=== PATIENT | male | born 1945 | race Caucasian/White ===

== ENCOUNTER 2022-10-08 07:45 | Outpatient (CLI) | payer MEDICARE, OTHER, SELFPAY ==
--- NOTE | 2022-10-08 07:59 | CT_ITS ---
WS: [id number] CT NECK TECHNIQUE: Contrast-enhanced CT of the neck with coronal and sagittal reformatted images. CLINICAL INFORMATION: LOCALIZED SWELLING, MASS, LUMP, NECK COMPARISON: CT October 14, 2018 DLP: 276.[address] scans at [facility] use at least one of these dose optimization techniques: automated e xposure control; mA and/or kV adjustment per patient size (includes targeted exams where dose is matc hed to clinical indication); or iterative reconstruction. FINDINGS: Palpable marker overlying the RIGHT parotid gland. No focal underlying cystic or solid lesion. Normal underlying parotid gland. Normal submandibular glands. Normal posterior nasopharynx. Normal palatine tonsils. RIGHT tonsillar calcifications. Normal parapharyngeal fat. No evidence of supraglottic or g lottic mass. Normal subglottic airway. Thyroid gland is normal. Lung apices are well aerated. Visualized paranasal sinuses are well aerated. Normal mastoid air cells. Slightly prominent RIGHT submandibular lymph node measuring 10 mm. This ap pears unchanged since 2019. No cervical lymphadenopathy. CT/CT neck w con* [id number] IMPRESSION: 1. Palpable marker overlying the RIGHT parotid gland. No underlying mass or le roman. Normal parotid glands. 2. Submandibular glands are normal. 3. Slightly prominent RIGHT submandibular lymph node appears similar to 2019. No cervical lymphadenopathy. 4. No evidence of supraglottic or glottic mass. 5. Visualized paranasal sinuses and mastoid air cells well aerated.
[2022-10-08 08:39] LABS: Blood Urea Nitrogen 19 mg/dL (8-23)
[2022-10-08] MEDS: iohexol 350 mg/mL 500 mL Btl (per mL) IV (08:50)
== END 2022-10-08 07:46 | disposition home or self-care (01) ==
LOC: RAD 07:49
PROVIDERS: PCP Nurse Practitioner; Visit Provider Specialist
DX: R22.1 Localized swelling, mass and lump, neck (principal)
CPT/HCPCS: 70491; 82565; 84520; Q9967

== ENCOUNTER 2023-01-28 16:12 | Inpatient (IN) | payer OTHER, SELFPAY ==
[2023-01-28] VITALS (62 sets, daily range): BP systolic 109–181; BP diastolic 65–88; PULSE 58–208; RESP 9–34; TEMP 36.9; O2SAT 91–100
--- NOTE | 2023-01-28 16:17 | CTR_ITS ---
PROCEDURE INFORMATION: Exam: CT Head Without Contrast Exam date and time: 01/28/2023 4:11 PM Age: 77 years old Clinical indication: Stroke-like symptoms; Altered mental status/memory loss; Additional info: Symptoms of acute stroke TECHNIQUE: Imaging protocol: Computed tomography of the head without contrast. Radiation optimization: All CT scans at this facility use at least one of these dose optimization techniques: automated exposure control; mA and/or kV adjustment per patient size (includes targeted exams where dose is matched to clinical indication); or iterative reconstruction. Other technique: STROKE PROTOCOL was implemented. REPORTING DATA: Count of CT and Cardiac NM exams in prior 12 months: This patient has received [address] and 0 known cardiac nuclear medicine studies in the 12 months prior to the current study. COMPARISON: CT neck w con* [id number] 10/08/2022 8:42 AM RADIATION DOSE METRICS: Total DLP (mGy-cm): 1154.57 FINDINGS: Brain: There are areas of edema in the left temporal lobe, parietal lobe and occipital lobe, as well as left ganglial capsular region, consistent with acute MCA territory ischemia. Follow-up MRI would be the most helpful examination to fully assess the ischemic regions. No acute intracranial hemorrhage is seen. No midline shift. Cerebral ventricles: There is mass effect upon the temporal horn of the left lateral ventricle. Paranasal sinuses: The visualized sinuses are unremarkable. Mastoid air cells: There is no mastoid effusion detected. Bones/joints: Unremarkable. No acute fracture. Soft tissues: Unremarkable. CT/CT head thrombolytic [id number] IMPRESSION: 1. Acute ischemia in left MCA territory, as above. 2. Edema is causing mass effect on the temporal horn of the left lateral ventricle. 3. No intracranial hemorrhage or midline shift. ASSESSMENT: ASPECTS ([place] Stroke Program Early CT Score) is 4.
--- NOTE | 2023-01-28 16:20 | ECG_ITS ---
[facility] Test Date: 2023-01-28 Pat Name: Mani Manning Department: Room: Gender: Male Senior Occupational Therapist: : [id number] Requested By: Kike Candelaria Order Number: [id number] Lynnette MD: Matt Malik M.D. Measurements Intervals [place] Rate: 66 P: 69 AR: 180 QRS: 8 QRSD: 103 T: 30 QT: 403 QTc: 424 Interpretive Statements SINUS RHYTHM Compared to ECG 02/23/2019 10:11:52 Sinus bradycardia no longer present Electronically Signed On 01-28-2023 17:23:26 CDT by Matt Malik M.D. [id number]
--- NOTE | 2023-01-28 16:24 | ED_ITS ---
HPI - Neuro Symptoms/Deficit General: Chief Complaint: Neuro Symptoms/Deficit Stated Complaint: stroke Time Seen by Provider: 01/28/23 16:13 Source: family and EMS Mode of arrival: EMS History of Present Illness: 77-year-old male arrives via EMS with sudden onset of the symptoms that 2 PM this afternoon he was unable to follow commands unable to answer questions. EMS was called they had a blood sugar of 82 in the field on arrival here he is moving all 4 limbs but not following commands and has word salad. Has a receptive aphasia Time: 16:17 Last Observed Normal: 14:00 Timing confirmed by: family member and other (EMS) Location: speech, dysarthria and altered History of same: No Severity: moderate Relieving factors: none Exacerbating factors: none Context: sudden onset Review of Systems General: Reports: ROS unobtainable due to mental status PFSH ED PFSH: Medical History Atypical chest pain EKG done on 08/31/2019 in the office revealed sinus bradycardia with a rate of [address]-T changes. Diverticulosis Dyspnea on exertion Essential hypertension Hearing loss Obesity Obesity (BMI 30-39.9) Umbilical hernia Umbilical done in January of 2019. Family History Mother , of [place] at the age of 84 CAD (coronary artery disease) NIH stroke score NIHSS: Level Of Consciousness - 1a: 3 Level Of Consciousness Questions - 1b: Neither Correct Level Of Consciousness Commands - 1c: One Correct Best Gaze - 2: Normal Visual [place] - 3: No Visual Loss Facial Palsy - 4: Normal Motor Arm Right - 5: No Drift Motor Arm Left - 5: No Drift Motor Leg Right - 6: No Drift Motor Leg Left - 6: No Drift Limb Ataxia - 7: Absent Sensory - 8: Normal Best Language - 9: Mild/Moderate Aphasia Dysarthia - 10: Mild/Moderate Dysarthia Extinction And Inattention - 11: 2 Score: Total Score: 10 Physical Exam HENMT: COMMON NORMALS: normocephalic, atraumatic and hearing grossly normal bi laterally HEAD & SCALP: normocephalic and atraumatic Resp: COMMON NORMALS: normal respiratory effort, No retractions, No use of accessory muscles and clear to auscultation bilaterally AUSCULTATION: clear to auscultation bilaterally Cardio: COMMON NORMALS: regular rate, regular rhythm and No murmurs present (Cardio) RATE: regular rate RHYTHM: regular rhythm GI: COMMON NORMALS: Soft to palpation and No hepatosplenomegaly present AUSCULTATION: Yes normoactive bowel sounds PALPATION: Yes Soft to palpation, No Tenderness to palpation present (GI), No Guarding due to palpation present (GI) and Yes No hepatosplenomegaly present Extremity: COMMON NORMALS: normal to inspection, capillary refill normal, no clubbing, cyanosis or edema, no calf tenderness and no pedal edema Skin: COMMON NORMALS: no rashes or lesions noted GENERAL SKIN EXAM: no rashes or lesions noted Course Vital Signs: Vital signs: Vital Signs Temperature 98.5 F 01/29/23 00:00 Pulse Rate 58 L 01/29/23 06:00 Respiratory Rate 16 01/29/23 02:56 Blood Pressure 159/77 01/29/23 02:56 Pulse Oximetry 98 01/29/23 00:15 Oxygen Delivery Me thod Nasal Cannula 01/29/23 00:00 Oxygen Flow Rate 2 01/29/23 00:00 MDM - Neuro Symptoms/Deficit Medical Decision Making Discussed with family. Reviewed findings. Initially there was no available family. He is within the timeframe and has an adequate NIH for administration of tPA. Discussed Dr. Oliver tPA administered. CT read by radiology as having signs of ischemia but no acute bleed. CTA done is negative for embolectomy. Repeat exam patient continues to have receptive aphasia. Blood pressure has improved significantly since arrival. We will admit and initiate usual stroke work-up and treatments. Discussed with hospitalist orders written admit to ICU. Medical Records I reviewed the patient's medical records. Lab Data I reviewed the patient's lab results. 01/29/23 02:13 01/29/23 02:[address] 01/28/23 16:17 IMPRESSION: 1. Acute ischemia in left MCA territory, as above. 2. Edema is causing mass effect on the temporal horn of the left lateral ventricle. 3. No intracranial hemorrhage or midline shift. ASSESSMENT: ASPECTS ([place] Stroke Program Early CT Score) is 4. ADDENDUM: 01/28/23 0291 The ordering physician KIKE Alston was contacted by phone at 4:33 PM CDT, 01/28/2023 with these results. Head/Neck CTA 01/28/23 16:35 IMPRESSION: No significant abnormality involving the major intracranial arteries. IMPRESSION: No acute arterial abnormality identified in the neck. REFERENCES: NASCET CRITERIA. The degree of stenosis in the cervical segment of the internal carotid artery is based on NASCET criteria. Normal is no stenosis. Mild is less than 50% stenosis. Moderate is 50-69% stenosis. Severe is 70% to 99% stenosis. Total occlusion is no detectable patent lumen. Laboratory Results WBC 8.3 10^3/uL (4.0-10.0) 01/28/23 16:25 RBC 4.69 10^6/uL (4.1-5.3) 01/28/23 16:25 Hgb 14.4 g/dL (11.7-16.6) 01/28/23 16:25 Hct 44.8 % (42.0-52.0) 01/28/23 16:25 MCV 95.5 fl (80-94) H 01/28/23 16:25 MCH 30.7 pg (28.0-34.0) 01/28/23 16:25 MCHC 32.1 g/dL (30.0-36.0) 01/28/23 16:25 RDW 12.9 % (12.1-15.1) 01/28/23 16:25 Plt Count 174 10^3/cmm (130-400) 01/28/23 16:25 MPV 9.1 fL (7.4-10.4) 01/28/23 16:25 Neut % (Auto) 58.6 % 01/28/23 16:25 Lymph % (Auto) 30.0 % 01/28/23 16:25 [place] % (Auto) 5.8 % 01/28/23 16:25 Eos % (Auto) 4.3 % 01/28/23 16:25 Baso % (Auto) 1.1 % 01/28/23 16:25 Neut # (Auto) 4.88 10^3/uL (1.8-7.7) 01/28/23 16:25 Lymph # (Auto) 2.5 10^3/uL (0.8-4.8) 01/28/23 16:25 [place] # (Auto) 0.5 10^3/uL (0.2-0.9) 01/28/23 16:25 Eos # (Auto) 0.4 10^3/uL (0.0-0.8) 01/28/23 16:25 Baso # (Auto) 0.1 10^3/uL (0.0-0.1) 01/28/23 16:25 Nucleated RBC % (auto) 0 % 01/28/23 16:25 Nucleated RBCs # 0.0 /100WBC 01/28/23 16:25 PT 13.80 SECONDS (12.1-14.9) 01/28/23 16:25 INR 1.02 (0.8-1.2) 01/28/23 16:25 APTT 28.6 SECONDS (23.9-36.7) 01/28/23 16:25 Sodium 140 mmol/L (136-145) 01/28/23 16:25 Potassium 4.3 mmol/L (3.5-5.1) 01/28/23 16:25 Chloride 106 mmol/L (98-107) 01/28/23 16:25 Carbon Dioxide 25 mmol/L (22-29) 01/28/23 16:25 Anion Gap 13.3 (5-19) 01/28/23 16:25 BUN 18 mg/dL (8-23) 01/28/23 16:25 Creatinine 1.3 mg/dL (0.7-1.2) H 01/28/23 16:25 GFR Calculation Not Reportable 01/28/23 16:25 Glucose 88 mg/dL (65-115) 01/28/23 16:25 Calculated Osmolality 291 mOsm/kg (285-295) 01/28/23 16:25 Calcium 8.4 mg/dL (8.5-10.5) L 01/28/23 16:25 Total Bilirubin 0.3 mg/dL (0.15-1.2) 01/28/23 16:25 AST 17 U/L (0-40) 01/28/23 16:25 ALT 18 U/L (0-41) 01/28/23 16:25 Alkaline Phosphatase 63 U/L (40-130) 01/28/23 16:25 Total Protein 7.0 g/dL (6.6-8.7) 01/28/23 16:25 Albumin 4.1 g/dL (3.5-5.2) 01/28/23 16:25 Globulin 2.9 g/dL (1.3-4.6) 01/28/23 16:25 Discharge Plan Discharge Patient Disposition: Admitted As Inpatient Admit Provider: Crescencio Fonseca Clinical Impression: CVA (cerebral vascular accident), Essential hypertension Condition: Stable Coding Level of Care Code ED Septic Cleaner for Mandy Murray
--- NOTE | 2023-01-28 16:35 | CTR_ITS ---
PROCEDURE INFORMATION: Exam: CTA Head Without And With Contrast, Arteriography Exam date and time: 01/28/2023 4:42 PM Age: 77 years old Clinical indication: Speech disturbance; Additional info: Acute CVA TECHNIQUE: Imaging protocol: Computed tomographic angiography of the head without and with contrast. Exam focused on the arteries. 3D rendering (Not supervised by radiologist): MIP and/or 3D reconstructed images were created by the technologist. Radiation optimization: All CT scans at this facility use at least one of these dose optimization techniques: automated exposure control; mA and/or kV adjustment per patient size (includes targeted exams where dose is matched to clinical indication); or iterative reconstruction. Contrast material: OMNI 350; Contrast volume: 100 ml; Contrast route: INTRAVENOUS (IV); REPORTING DATA: Count of CT and Cardiac NM exams in prior 12 months: This patient has received [address] and 0 known cardiac nuclear medicine studies in the 12 months prior to the current study. COMPARISON: CT head thrombolytic [id number] 01/28/2023 4:11 PM RADIATION DOSE METRICS: Total DLP (mGy-cm): 1236.58 FINDINGS: ANTERIOR CIRCULATION: Right internal carotid artery: Intracranial segment is patent with no significant stenosis or occlusion. No aneurysm. Right middle cerebral artery: No occlusion or significant stenosis. No aneurysm. Right anterior cerebral artery: No occlusion or significant stenosis. No aneurysm. Left internal carotid artery: Intracranial segment is patent with no significant stenosis. No aneurysm. Left middle cerebral artery: No occlusion or significant stenosis. No aneurysm. Left anterior cerebral artery: No occlusion or significant stenosis. No aneurysm. POSTERIOR CIRCULATION: Right vertebral artery: No occlusion or significant stenosis. No aneurysm. Left vertebral artery: No occlusion or significant stenosis. No aneurysm. Basilar artery: No occlusion or significant stenosis. No aneurysm. Right posterior cerebral artery: No occlusion or significant stenosis. No aneurysm. Left posterior cerebral artery: No occlusion or significant stenosis. No aneurysm. HEAD: Brain: See separate report. Cerebral ventricles: Effacement of the left temporal horn. No ventriculomegaly. Bones/joints: Unremarkable. No acute fracture. Paranasal sinuses: Visualized sinuses are normal. No fluid levels. Mastoid air cells: Visualized mastoids are normal. No mastoid effusion. Soft tissues: Unremarkable. PROCEDURE INFORMATION: Exam: CTA Neck Without And With Contrast Exam date and time: 01/28/2023 4:42 PM Age: 77 years old Clinical indication: Speech disturbance; Additional info: Acute CVA TECHNIQUE: Imaging protocol: Computed tomographic angiography of the neck without and with contrast. 3D rendering (Not supervised by radiologist): MIP and/or 3D reconstructed images were created by the technologist. Radiation optimization: All CT scans at this facility use at least one of these dose optimization techniques: automated exposure control; mA and/or kV adjustment per patient size (includes targeted exams where dose is matched to clinical indication); or iterative reconstruction. Contrast material: OMNI 350; Contrast volume: 100 ml; Contrast route: INTRAVENOUS (IV); REPORTING DATA: Count of CT and Cardiac NM exams in prior 12 months: This patient has received [address] and 0 known cardiac nuclear medicine studies in the 12 months prior to the current study. COMPARISON: CT neck w con* [id number] 10/08/2022 8:42 AM RADIATION DOSE METRICS: Total DLP (mGy-cm): 1236.58 FINDINGS: Right common carotid artery: No stenosis. No dissection or occlusion. Right internal carotid artery: No stenosis of the extracranial segment. No dissection or occlusion. Right external carotid artery: No occlusion or stenosis of the origin. Left common carotid artery: No stenosis. No dissection or occlusion. Left internal carotid artery: No stenosis of the extracranial segment. No dissection or occlusion. Left external carotid artery: No occlusion or stenosis of the origin. Right vertebral artery: No stenosis. No dissection or occlusion. Left vertebral artery: No stenosis. No dissection or occlusion. Aorta: There is minimal calcified atherosclerotic plaque at the aortic arch. Remarkably for the patient's age, no other calcified plaque is detected on this study. Soft tissues: Normal. No significant soft tissue swelling. Bones/joints: No acute fracture. CT/CT angio headneck* [id number] IMPRESSION: No significant abnormality involving the major intracranial arteries. IMPRESSION: No acute arterial abnormality identified in the neck. REFERENCES: NASCET CRITERIA. The degree of stenosis in the cervical segment of the internal carotid artery is based on NASCET criteria. Normal is no stenosis. Mild is less than 50% stenosis. Moderate is 50-69% stenosis. Severe is 70% to 99% stenosis. Total occlusion is no detectable patent lumen.
[2023-01-28 16:36] LABS: Basophils # 0.1 10^3/uL (0.0-0.1); Basophils % 1.1 %; Eosinophils # 0.4 10^3/uL (0.0-0.8); Eosinophils % 4.3 %; Hematocrit 44.8 % (42.0-52.0); Hemoglobin 14.4 g/dL (11.7-16.6); Lymphocytes # 2.5 10^3/uL (0.8-4.8); Mean Corpuscular HGB Conc 32.1 g/dL (30.0-36.0); Mean Corpuscular Hemoglobin 30.7 pg (28.0-34.0); Mean Corpuscular Volume 95.5 fl (80-94); Mean Platelet Volume 9.1 fL (7.4-10.4); Monocytes # 0.5 10^3/uL (0.2-0.9); Monocytes % 5.8 %; Neutrophils # 4.88 10^3/uL (1.8-7.7); Neutrophils % 58.6 %; Nucleated Red Blood Cells % 0 %; Platelet Count 174 10^3/cmm (130-400); Red Blood Count 4.69 10^6/uL (4.1-5.3); Red Cell Distribution Width 12.9 % (12.1-15.1); White Blood Count 8.3 10^3/uL (4.0-10.0)
[2023-01-28] MEDS: iohexol 350 mg/mL 500 mL Btl (per mL) IV (16:51)
[2023-01-28 16:52] LABS: INR 1.02 (0.8-1.2)
[2023-01-28 16:53] LABS: Partial Thromboplastin Time 28.6 SECONDS (23.9-36.7)
[2023-01-28 17:00] LABS: Alanine Aminotransferase 18 U/L (0-41); Albumin Level 4.1 g/dL (3.5-5.2); Alkaline Phosphatase 63 U/L (40-130); Anion Gap 13.3 (5-19); Aspartate Amino Transferase 17 U/L (0-40); Blood Urea Nitrogen 18 mg/dL (8-23); Calcium 8.4 mg/dL (8.5-10.5); Carbon Dioxide 25 mmol/L (22-29); Chloride 106 mmol/L (98-107); Globulin 2.9 g/dL (1.3-4.6); Glucose 88 mg/dL (65-115); Osmolality Calculated 291 mOsm/kg (285-295); Potassium 4.3 mmol/L (3.5-5.1); Sodium 140 mmol/L (136-145); Total Bilirubin 0.3 mg/dL (0.15-1.2)
--- NOTE | 2023-01-28 17:36 | P.PNCC_ITS ---
Stroke Alert Activation ED Arrival Date: 01/28/23 ED Arrival Time: 16:53 Last Known Normal/at Baseline: 1-2 hours ago Other Last Known Well Infomation: Stroke alert was called by [facility] at 1547 reporting left-sided weakness, confusion and slurred speech. Patient was last known to be well at 2 PM. I talked with the nurse and let them know that I was on standby. The patient was still 25 minutes out having been picked up in [place]. Dr. Adan called me immediately after he evaluated the patient and found that the patient had profound neurologic abnormalities although his motor focality was not evident. We agreed that he should be treated and an IV was inserted and the patient received tPA. Stroke Alert Activated by: [facility] Stroke Alert Activation Time: 15:47 Stroke MD @ Bedside Time: 15:47 NIH stroke score NIHSS: Level Of Consciousness - 1a: 3 Level Of Consciousness Questions - 1b: Neither Correct Level Of Consciousness Commands - 1c: Neither Correct Best Gaze - 2: Normal Visual [place] - 3: No Visual Loss Facial Palsy - 4: Normal Motor Arm Right - 5: No Drift Motor Arm Left - 5: No Drift Motor Leg Right - 6: No Drift Motor Leg Left - 6: No Drift Limb Ataxia - 7: Absent Sensory - 8: Normal Best Language - 9: Severe Aphasia Dysarthia - 10: Normal Extinction And Inattention - 11: 0 Score: Total Score: 9 Stroke Alert Data/Treatment Time to CT of Head: 16:17 CT Impression: Mild sulcal effacement and loss of the rodney-white differentiation in the left inferior and posterior temporal lobe. Nonspecific white matter changes in the left hemisphere. No sulcal effacement in the sylvian fissure and I do not appreciate any asymmetry of the ventricles. CT angiogram shows no sign of occlusion in any of the extracranial or intracranial carotid or vertebral arteries. Left middle cerebral artery patent throughout. Stroke Risk Factors: hypertension (Normally he is not hypertensive and checks his blood pressure at home) and previous [place] (This pain seen by Dr. Galloway, noncardiac) tPA Started Time: tPA Started - Time: 16:27 tPA Admin Prior to Arrival: No Patient & Family Educated on: Cause of Stroke, Risk Factors, Treament Plan, Prognosis, Stroke Education Booklet and tPA Risks/Benefits Other Patient & Family Education: I have searched the chart and I am unable to locate the time of the tPA bolus. I talked with Dr. Adan and we agreed to tPA by phone after he had time to fully evaluate the patient. I completed several examinations in my office before going [id number] with the patient, performing a neurologic exam and talking with his family. I reviewed his CT of the head and talked with the family about the findings of edema with sulcal effacement which would not preclude tPA since patient had exactly known time of onset witnessed by people at the caf?. Critical Care Time Critical Care Time: less than 30 mins Additional information about critical care time: 30 A&P Assessment and plan (1) Left acute arterial ischemic stroke, MCA (middle cerebral artery): Acute posterior branch left middle cerebral artery stroke with receptive more than expressive aphasia. No motor deficit. No visual field cut. Known time of onset of weakness time of onset 2 hours prior to tPA bolus. Although CT scan of the head shows loss of rodney-white differentiation and sulcal effacement, this is not a contraindication to tPA. Plan to keep the patient's blood pressure under good control based on tPA protocol. CT of the head in the morning. Coding Level of Care Code Acute Code for g Fwd Diagnoses Left acute arterial ischemic stroke, MCA (middle cerebral artery) I63.512
--- NOTE | 2023-01-28 19:16 | PM.HP ---
Providers/Chief Complaint Admitting Physician: Crescencio Fonseca MD Primary Care Provider: ROBBY Grissom-C Chief Complaint: stroke History of Present Illness Mani Manning is a 77 year old male with past medical history of hypertension was brought in with chief complaint of acute onset of symptoms that he was not able to follow commands unable to answer questions When he arrived in the ER he was able to move all his extremities, but was having word salad, code stroke was called,NIHSS: 10 , on arrival, CT head without contrast was done: Which did not showed any acute intracranial pathology, CTA head and neck no flow-limiting stenosis, patient received tPA. His vitals and labs have been reviewed. Review of Systems General: Reports: 10 or more systems reviewed and unremarkable except in HPI and below Const: Denies: fever(s), chills, body aches, change in appetite or diaphoresis Card: Denies: palpitations, edema, swelling of feet/ankles, dyspnea on exertion, orthopnea or leg pain with exertion Resp: Denies: dyspnea, productive cough, wheezing or pain on inspiration GI: Denies: abdominal pain, nausea, vomiting, diarrhea or constipation : Denies: flank pain or difficulty urinating Musc: Denies: back pain, extremity pain or extremity swelling Neuro: Denies: headache(s), difficulty walking or confusion Medications/Allergies Home Medications Medication Instructions Recorded Confirmed Last Taken Type aspirin 81 mg tablet,delayed 81 mg PO Q6H PRN Pain 01/28/23 01/28/23 01/28/23 History release Allergies Allergy/AdvReac Type Severity Reaction Status Date / Time hydrochlorothiazide Allergy Weakness/di Verified 01/28/23 16:31 zziness Sulfa (Sulfonamide Allergy rashes Verified 01/28/23 16:31 Antibiotics) PFSH Acute PFSH: Medical History Atypical chest pain EKG done on 08/31/2019 in the office revealed sinus bradycardia with a rate of [address]-T changes. Diverticulosis Dyspnea on exertion Essential hypertension Hearing loss Obesity Obesity (BMI 30-39.9) Umbilical hernia Umbilical done in January of 2019. Family History Mother , of [place] at the age of 84 CAD (coronary artery disease) Vitals/I&O/Wt Last Vital Signs Temp 98.5 F 01/28/23 16:17 Pulse 87 01/28/23 18:48 Resp 16 01/28/23 18:48 BP 111/65 01/28/23 18:48 Pulse Ox 98 01/28/23 18:48 O2 Del Method Room Air 01/28/23 16:17 Weight last 48 hrs Weight 113.398 kg Physical Exam Const: COMMON NORMALS: patient oriented x3 HENMT: COMMON NORMALS: normocephalic and atraumatic HEAD & SCALP: normocephalic and atraumatic Resp: COMMON NORMALS: clear to auscultation bilaterally AUSCULTATION: clear to auscultation bilaterally Cardio: COMMON NORMALS: regular rate, regular rhythm, S1 normal heart sound present, S2 normal heart sound present, No gallops present (Cardio), No murmurs present (Cardio), No rub (Cardio) and Peripheral pulses 2+ throughout RATE: regular rate RHYTHM: regular rhythm HEART SOUNDS: S1 normal heart sound present and S2 normal heart sound present PERIPHERAL PULSES: Peripheral pulses 2+ throughout GI: COMMON NORMALS: Normal to inspection, nondistended, normoactive bowel sounds present, Soft to palpation, non-tender, No hepatosplenomegaly present and no masses AUSCULTATION: Yes normoactive bowel sounds PALPATION: Yes Soft to palpation and Yes No hepatosplenomegaly present RECTAL EXAM: Yes deferred Extremity: COMMON NORMALS: no clubbing, cyanosis or edema and no pedal edema Neuro: COMMON NORMALS: patient oriented x3 Data 01/29/23 02:13 01/29/23 02:13 A&P Assessment and plan (1) CVA (cerebral vascular accident): (2) Essential hypertension: Plan 77 year old male with past medical history of hypertension was brought in with chief complaint of acute onset of symptoms that he was not able to follow commands unable to answer questions When he arrived in the ER he was able to move all his extremities, but was having word salad, code stroke was called,NIHSS: 10 , on arrival, CT head without contrast was done: Which did not showed any acute intracranial pathology, CTA head and neck no flow-limiting stenosis, patient received tPA. Assessment: Acute CVA: S/p tPA: Currently patient has significant word salad, minimal right-sided weakness. CT head without contrast was done: Which did not showed any acute intracranial pathology, CTA head and neck no flow-limiting stenosis Follow repeat CT head without contrast in the morning Follow-up 2D echo with bubble study Started on aspirin and statin Monitor blood pressure for goal of less than 180/105 PT OT evaluation Speech evaluation Telemetry monitoring Event monitor on discharge CODE STATUS: Full code Attestations Medical Necessity Statement*: Patient is to in hospital for management of acute CVA.Anticipated length of stay greater than 2 midnights Coding Level of Care Code Acute Code for Chg Fwd Diagnoses CVA (cerebral vascular accident) I63.9 Essential hypertension I10
[2023-01-28 19:21] LABS: Add Urine Microscopic? NO; Charge for UA Resulting for Rev
--- NOTE | 2023-01-28 19:23 | USCV_ITS ---
Mani Manning Age: 77 Gender: M : 1945 Exam Date: 01/28/2023 23:44 Ordering Phys: Crescencio Fonseca MD Technologist: ALEJANDRA Exam Location: [facility] [place] Indication: Acute CVA. No history of cardiac intervention. A bubble study is ordered. BP: 111 / 65 HR: 59 Rhythm: Sinus Technical Quality: Adequate MEASUREMENTS (Male / Female) Normal Values 2D ECHO LV Diastolic Diameter PLAX 5.4 cm 4.2 - 5.9 / 3.9 - 5.3 cm LV Systolic Diameter PLAX 3.1 cm IVS Diastolic Thickness 1.3 cm 0.6 - 1.0 / 0.6 - 0.9 cm IVS Systolic Thickness 1.6 cm LVPW Diastolic Thickness 1.0 cm 0.6 - 1.0 / 0.6 - 0.9 cm LVPW Systolic Thickness 2.1 cm LVOT Diameter 2.1 cm LV Ejection Fraction 2D Teich 73.8 % LV Ejection Fraction MOD 2C 56.7 % LV Ejection Fraction 2C AL 55.9 % LA Diameter 4.9 cm LA Width 3.9 cm LA Height 5.9 cm RA Width 2.9 cm RA Height 4.8 cm Aorta at Sinotubular Diameter 2.9 cm IVC Diameter 2.1 cm M-MODE Aortic Annulus Diameter 2.8 cm LA Ao Ratio MM 1.7 MV E Point Septal Separation 0.0 cm DOPPLER AV Peak Velocity 131.0 cm/s LVOT Peak Velocity 95.0 cm/s AV Area Cont Eq vti 2.1 cm squared AV Area Cont Eq pk 2.5 cm squared MV Peak Velocity 109.0 cm/s MV Area PHT 4.2 cm squared Mitral E to A Ratio 0.9 MV E' Velocity 48.5 cm/s Mitral E to MV E' Ratio 12.0 Mitral E to LV E' Lateral Ratio 11.4 Mitral E to LV E' Septal Ratio 12.9 TV Peak E Velocity 41.0 cm/s PV Peak Velocity 85.0 cm/s RV Acceleration Time 0.1 s RV Ejection Time 0.4 s RV AcT/ET 0.3 FINDINGS Left Ventricle Normal left ventricular cavity size. Normal left ventricular systolic function. Left ventricular ejection fraction is estimated at 60-65 %. No regional wall motion abnormalities. Normal diastolic function. Right Ventricle Normal right ventricular size and systolic function. RVSP could not be calculated due to incomplete tricuspid regurgitation velocity profile. Right Atrium Normal right atrial size. Left Atrium Upper normal left atrial size. No evidence of intracardiac shunt based on bubble study. Mitral Valve Structurally normal mitral valve. No mitral valve stenosis. No mitral valve regurgitation. Aortic Valve Structurally normal trileaflet aortic valve. No aortic valve stenosis. No aortic valve regurgitation. Tricuspid Valve Structurally normal tricuspid valve. No tricuspid valve stenosis. Trace tricuspid valve regurgitation. Pulmonic Valve Pulmonic valve not well visualized. No pulmonary valve stenosis. No pulmonary valve regurgitation. Pericardium No pericardial effusion. Aorta Normal size aortic root and proximal ascending aorta. IVC Normal IVC dimension with >50% respiratory change of the inferior vena cava. CONCLUSIONS 1. Normal left ventricular cavity size. Normal left ventricular systolic function. Left ventricular ejection fraction is estimated at 60-65 %. No regional wall motion abnormalities. Normal diastolic function. 2. No evidence of intracardiac shunt based on bubble study (agitated saline study). 3. No prior similar studies to compare. Susie Santa MD (Electronically Signed) Final Date: 29 January 2023 16:36 S
--- NOTE | 2023-01-28 19:24 | PC.NURSE ---
Per telephone report from GRAPE PICKERPATRICIA De Guzman: TPA started @ 1626 Bolus administered @ 6936
[2023-01-28] MEDS: sodium chloride 0.9% 1,000 ML 100 ML IV (19:38)
--- NOTE | 2023-01-28 19:40 | PC.NURSE ---
Telephone report taken from Gab SOLORIO RN: TPA Bolus administered @ 4405 TPA infusion started @ 0731
[2023-01-28 19:54] LABS: Bilirubin Urine Neg (Negative); Blood Urine Neg (Negative); Glucose Urine UA Norm (Normal); Ketones Urine 1+ (Negative); Leukocyte Esterase Urine Negative (Negative); Nitrate Urine Negative (Negative); Protein Urine Neg (Negative); Specific Gravity, Urine 1.005 (1.005-1.030); Urine Appearance Clear (CLEAR); Urine Color Yellow (Yellow); Urobilinogen Urine Norm (Negative); pH Urine 7 (5-7)
[2023-01-28 20:03] LABS: Amphetamines Screen Urine Negative (Negative); Barbiturates Screen Urine Negative (Negative); Benzodiazepines Screen Urine Negative (Negative); Cocaine Screen Urine Negative (Negative); Opiate Screen Urine Negative (Negative); PCP Screen Urine Negative (Negative); THC Screen Urine Negative (Negative)
--- NOTE | 2023-01-28 22:27 | PC.NURSE ---
Patient arrived on unit prior to shift change. Patient exhibited Word salad, right sided facial droop, loss of sensation in right hand, and confusion. TPA administered in ED via report and follow up with Director [employer] Services, although not reflected in MAR. Patient's word salad absent by 2099 however patient still remains confused. 2199 patient is oriented to self, loss of sensation no longer present. Unable to pass nurse dysphasia screening due to inability to follow tongue commands. Lipitor held and Hospitalist notified.
[2023-01-29] VITALS (28 sets, daily range): BP systolic 112–165; BP diastolic 61–90; PULSE 56–120; RESP 14–24; TEMP 36.6–36.9; O2SAT 91–98
[2023-01-29 03:06] LABS: Basophils # 0.1 10^3/uL (0.0-0.1); Basophils % 0.7 %; Eosinophils # 0.2 10^3/uL (0.0-0.8); Hematocrit 44.6 % (42.0-52.0); Hemoglobin 14.5 g/dL (11.7-16.6); Lymphocytes # 2.4 10^3/uL (0.8-4.8); Lymphocytes % 27.5 %; Mean Corpuscular HGB Conc 32.5 g/dL (30.0-36.0); Mean Corpuscular Hemoglobin 30.7 pg (28.0-34.0); Mean Corpuscular Volume 94.3 fl (80-94); Mean Platelet Volume 9.4 fL (7.4-10.4); Monocytes # 0.6 10^3/uL (0.2-0.9); Monocytes % 6.3 %; Neutrophils # 5.56 10^3/uL (1.8-7.7); Nucleated Red Blood Cells % 0 %; Platelet Count 175 10^3/cmm (130-400); Red Blood Count 4.73 10^6/uL (4.1-5.3); Red Cell Distribution Width 12.7 % (12.1-15.1); White Blood Count 8.8 10^3/uL (4.0-10.0)
[2023-01-29 03:32] LABS: Alanine Aminotransferase 17 U/L (0-41); Albumin Level 3.8 g/dL (3.5-5.2); Alkaline Phosphatase 59 U/L (40-130); Anion Gap 16.4 (5-19); Aspartate Amino Transferase 17 U/L (0-40); Blood Urea Nitrogen 15 mg/dL (8-23); Calcium 8.5 mg/dL (8.5-10.5); Carbon Dioxide 23 mmol/L (22-29); Chloride 106 mmol/L (98-107); Chol HDL Ratio 3.05 mg/dL (1.0-5.00); Cholesterol 125 mg/dL (0-200); Globulin 2.8 g/dL (1.3-4.6); Glucose 86 mg/dL (65-115); HDL Cholesterol 41 mg/dL (60-100); LDL Cholesterol Calculated 70 mg/dL (50-129); LDL HDL Ratio 1.71 RATIO (0.00-3.22); Magnesium 2.2 mg/dL (1.7-2.3); Osmolality Calculated 292 mOsm/kg (285-295); Potassium 4.4 mmol/L (3.5-5.1); Sodium 141 mmol/L (136-145); Thyroid Stimulating Hormone 0.82 uIU/mL (0.27-4.20); Total Bilirubin 0.5 mg/dL (0.15-1.2); Total Protein 6.6 g/dL (6.6-8.7); Triglycerides 72 mg/dL (0-150)
[2023-01-29] MEDS: sodium chloride 0.9% 1,000 ML 100 ML IV (05:18)
--- NOTE | 2023-01-29 07:28 | PC.OT ---
OT TREATMENT HELD DUE TO TPA ADMINISTRATION PROTOCOL. EVAL TO BE ATTEMPTED TOMORROW.
--- NOTE | 2023-01-29 07:35 | PC.NURSE ---
Assessed patient, patient is still confused to time, place, date and who is here with him. Placed a Fall Risk bracelet on patient. Patient is visiting with spouse and family member, he cannot remember their names at this time.
--- NOTE | 2023-01-29 08:45 | PM.PN ---
Vitals/I&O/Wt Last Vital Signs Temp 98.5 F 01/29/23 00:00 Pulse 63 01/29/23 07:19 Resp 14 01/29/23 07:19 BP 139/85 01/29/23 07:19 Pulse Ox 97 01/29/23 07:19 O2 Del Method Nasal Cannula 01/29/23 07:19 O2 Flow Rate 2 01/29/23 07:19 01/28/23 01/29/23 01/29/23 22:59 06:59 14:59 Intake Total 966.667 / 966.667 Output Total 500 / 500 500 / 1000 Balance -500 / -500 466.667 / -33.333 Weight last 48 hrs Weight 250 lb Physical Exam Narrative: He is awake and alert. He can speak in short phrases that are meaningful. He does not follow complex commands but follows simple axial commands. He perseverates. No dysarthria. No visual field cut. No drift of the extended arms or legs. CT head pending. Data 01/29/23 02:13 01/29/23 02:13 A&P Assessment and plan (1) Left acute arterial ischemic stroke, MCA (middle cerebral artery): 77-year-old man with an acute left middle cerebral artery stroke, cryptogenic. So far he is in normal sinus rhythm by the monitor and previous EKG. He has no history of heart disease. Echocardiogram pending repeat CT head pending and if it is unremarkable he can move to the floor this morning. Maintain control of his blood pressure per protocol. Attestations Medical Necessity Statement*: Cute left middle cerebral artery stroke status post tPA Coding Level of Care Code Acute Code for Chg Fwd Diagnoses Left acute arterial ischemic stroke, MCA (middle cerebral artery) I63.512
--- NOTE | 2023-01-29 09:00 | PC.NURSE ---
TPA was not scanned, the bolus was given at 1629 and the drip was started at 1632, it was documented on the paper stroke flow sheet that states its not to be scanned into pt chart. Pt wieghed 250 pounds so was given the max per the protocol l sheet. Dr. Rahman was given the times and in the room at time the TPA was given
--- NOTE | 2023-01-29 09:26 | PC.NURSE ---
Went in to assess Mr. Manning and he is sleeping soundly so I did not do his neuro assessment at this time.
--- NOTE | 2023-01-29 11:45 | CT_ITS ---
WS: [id number] CT HEAD TECHNIQUE: Noncontrast CT of the head obtained from the skullbase to the vertex. CLINICAL INFORMATION: s/p tpa,for CVA,currently complaining of headache COMPARISON: CT January 28, 2023 DLP: 1158.[address] scans at [facility] use at least one of these dose optimization techniques: automated e xposure control; mA and/or kV adjustment per patient size (includes targeted exams where dose is matc hed to clinical indication); or iterative reconstruction. FINDINGS: Again seen is the suspected LEFT MCA territory subacute infarct with low attenuation change most prom inent involving the LEFT anterior temporal lobe extending into the LEFT posterior temporal parieto-oc cipital junction. Mild mass effect on the LEFT temporal horn is unchanged. Findings can be further ev aluated MRI. No evidence of intracranial hemorrhage. No hydrocephalus. Paranasal sinuses and mastoid air cells wel l aerated. Normal posterior nasopharynx. CT/CT head wo con* [id number] IMPRESSION: 1. No evidence of intracranial hemorrhage 2. Suspected subacute LEFT MCA territory infarct appears stable described abov e. Mild mass effect in the LEFT temporal horn is unchanged. This can be further evaluated with MRI. 3. No hydrocephalus. 4. Moderate chronic small vessel changes. Mild parenchymal volume loss. 5. Intracranial vascular calcification.
[2023-01-29] MEDS: acetaminophen 325 mg Tablet 650 MG PO (11:51)
--- NOTE | 2023-01-29 12:01 | PC.NURSE ---
Patient transported by tech to CT for a CT head.
[2023-01-29] MEDS: clopidogrel 75 mg Tablet PO (13:03)
--- NOTE | 2023-01-29 19:08 | PM.PN ---
Subjective Subjective: Patient was seen and examined this morning, continued to have some degree of word salad but improved since yesterday, he was also complaining of headache today, repeat CT head without contrast done today has not shown any intracranial hemorrhage. Medications: Medication Review Details: Generic Name Dose Route Start Last Admin Trade Name Racquel PRN Reason Stop Dose Admin Acetaminophen 650 mg 01/28/23 19:11 01/29/23 11:51 Acetaminophen 32 5 Mg Tablet PO 650 mg Q6H PRN Administration Mild/Mod Pain Or Temp >/= 101 Aspirin 81 mg 01/29/23 09:00 01/29/23 12:37 Aspirin 81 Mg Ec Tablet PO Not Given DAILY LUIS ALFREDO Atorvastatin Calci um 40 mg 01/28/23 21:00 01/28/23 22:39 Atorvastatin 40 Mg Tablet PO Not Given BEDTIME LUIS ALFREDO Clopidogrel Bisulf ate 75 mg 01/29/23 11:50 01/29/23 13:03 Clopidogrel 75 M g Tablet PO 75 mg DAILY LUIS ALFREDO Administration Vitals/I&O/Wt Last Vital Signs Temp 98.4 F 01/29/23 16:00 Pulse 79 01/29/23 18:00 Resp 16 01/29/23 09:19 BP 149/78 01/29/23 18:00 Pulse Ox 97 01/29/23 11:50 O2 Del Method Nasal Cannula 01/29/23 11:50 O2 Flow Rate 2 01/29/23 11:50 01/29/23 01/29/23 01/29/23 06:59 14:59 22:59 Intake Total 966.667 / 708.671 8120 / 1000 Output Total 500 / 1000 250 / 250 250 / 500 Balance 466.667 / -33.333 -250 / -250 750 / 500 Weight last 48 hrs Weight 113.398 kg Physical Exam HENMT: COMMON NORMALS: normocephalic and atraumatic HEAD & SCALP: normocephalic and atraumatic Resp: COMMON NORMALS: normal respiratory effort, No retractions, No use of accessory muscles and clear to auscultation bilaterally EFFORT & INSPECTION: Yes symmetric chest movement AUSCULTATION: clear to auscultation bilaterally Cardio: COMMON NORMALS: regular rate, regular rhythm, S1 normal heart sound present, S2 normal heart sound present, No gallops present (Cardio), No murmurs present (Cardio), No rub (Cardio) and Peripheral pulses 2+ throughout RATE: regular rate RHYTHM: regular rhythm HEART SOUNDS: S1 normal heart sound present and S2 normal heart sound present PERIPHERAL PULSES: Peripheral pulses 2+ throughout GI: COMMON NORMALS: Normal to inspection, nondistended, normoactive bowel sounds present, Soft to palpation, non-tender, No hepatosplenomegaly present and no masses AUSCULTATION: Yes normoactive bowel sounds PALPATION: Yes Soft to palpation and Yes No hepatosplenomegaly present RECTAL EXAM: Yes deferred Extremity: COMMON NORMALS: no clubbing, cyanosis or edema and no pedal edema Data 01/29/23 02:13 01/29/23 02:13 A&P Assessment and plan (1) CVA (cerebral vascular accident): (2) Essential hypertension: Plan 77 year old male with past medical history of hypertension was brought in with chief complaint of acute onset of symptoms that he was not able to follow commands unable to answer questions When he arrived in the ER he was able to move all his extremities, but was having word salad, code stroke was called,NIHSS: 10 , on arrival, CT head without contrast was done: Acute ischemia in left MCA territory. CTA head and neck no flow-limiting stenosis, patient received tPA. Assessment: Acute CVA: S/p tPA: Currently patient has significant word salad, minimal right-sided weakness. CT head without contrast was done:Acute ischemia in left MCA territory Repeat CT head without contrast done today: No evidence of intracranial hemorrhage,Suspected subacute LEFT MCA territory infarct appears stable. CTA head and neck no flow-limiting stenosis Follow repeat CT head without contrast in the morning 2D echo with bubble study:Normal left ventricular cavity size. Normal left ventricular?systolic function. Left ventricular ejection fraction is ?estimated at 60-65 %. No regional wall motion abnormalities.?Normal diastolic function. No evidence of intracardiac shunt based on bubble study On aspirin, Plavix and statin PT OT evaluation: Done Speech evaluation: Done Telemetry monitoring: No significant arrhythmia reported so far. Event monitor on discharge Hypertension: We will start on amlodipine 5 mg p.o. daily from am. CODE STATUS: Full code Attestations Medical Necessity Statement*: Needs to be in hospital for management of acute CVA. Coding Level of Care Code Acute Code for [facility] Diagnoses CVA (cerebral vascular accident) I63.9 Essential hypertension I10
[2023-01-29] MEDS: atorvastatin 40 mg Tablet PO (20:24)
[2023-01-29] MEDS: enoxaparin 40 mg/0.4 mL Syringe SUBCUT (20:26)
[2023-01-30] VITALS (24 sets, daily range): BP systolic 114–192; BP diastolic 65–103; PULSE 48–74; RESP 12–19; TEMP 36.6; O2SAT 89–97
[2023-01-30 03:14] LABS: Basophils # 0.1 10^3/uL (0.0-0.1); Basophils % 1.2 %; Eosinophils # 0.4 10^3/uL (0.0-0.8); Eosinophils % 5.3 %; Hematocrit 43.7 % (42.0-52.0); Hemoglobin 14.7 g/dL (11.7-16.6); Lymphocytes # 2.4 10^3/uL (0.8-4.8); Lymphocytes % 34.5 %; Mean Corpuscular HGB Conc 33.6 g/dL (30.0-36.0); Mean Corpuscular Hemoglobin 31.3 pg (28.0-34.0); Mean Corpuscular Volume 93.2 fl (80-94); Mean Platelet Volume 9.5 fL (7.4-10.4); Monocytes # 0.4 10^3/uL (0.2-0.9); Monocytes % 6.2 %; Neutrophils # 3.65 10^3/uL (1.8-7.7); Neutrophils % 52.5 %; Nucleated Red Blood Cells % 0 %; Platelet Count 176 10^3/cmm (130-400); Red Blood Count 4.69 10^6/uL (4.1-5.3); Red Cell Distribution Width 12.8 % (12.1-15.1)
[2023-01-30 03:42] LABS: Alanine Aminotransferase 16 U/L (0-41); Albumin Level 3.8 g/dL (3.5-5.2); Alkaline Phosphatase 59 U/L (40-130); Anion Gap 12.6 (5-19); Aspartate Amino Transferase 17 U/L (0-40); Blood Urea Nitrogen 11 mg/dL (8-23); Calcium 8.7 mg/dL (8.5-10.5); Carbon Dioxide 25 mmol/L (22-29); Chloride 106 mmol/L (98-107); Globulin 2.9 g/dL (1.3-4.6); Glucose 84 mg/dL (65-115); Osmolality Calculated 287 mOsm/kg (285-295); Potassium 4.6 mmol/L (3.5-5.1); Sodium 139 mmol/L (136-145); Total Bilirubin 0.5 mg/dL (0.15-1.2); Total Protein 6.7 g/dL (6.6-8.7)
[2023-01-30] MEDS: aspirin 81 mg EC Tablet PO (08:46)
[2023-01-30] MEDS: clopidogrel 75 mg Tablet PO (08:46)
[2023-01-30] MEDS: amlodipine 5 mg Tablet PO ×2 (08:46→11:36)
--- NOTE | 2023-01-30 11:01 | P.DS_ITS ---
Discharge Providers Date of Admission: 01/28/23 17:32 Date of Discharge: January 30, 2023 Attending Provider at Admission: Crescencio Fonseca MD Attending Provider at Discharge: Crescencio Fonseca MD Primary Care Provider: TREVA Grissom Diagnoses at Discharge Discharge Diagnosis (1) CVA (cerebral vascular accident): Status: Acute (2) Essential hypertension: Status: Acute Reason for Visit Reason for Visit: stroke Hospital Course Hospital Course 77 year old male with past medical history of hypertension was brought in with chief complaint of acute onset of symptoms. He was not wanting to follow commands, significant difficulty with word finding, significant confusion,When he arrived in the ER he was able to move all his extremities, but was having word salad, code stroke was called,NIHSS: 10, CT head without contrast and CTA head and neck was done: ?Acute ischemia in left MCA territory, as above.Edema is causing mass effect on the temporal horn of the left lateral ventricle.No intracranial hemorrhage or midline shift. CTA head and neck: No significant stenosis, s/p tPA, he was further admitted for the management of acute cryptogenic CVA, patient was kept on aspirin Plavix, statin, blood pressures were closely monitored, 2D echo with bubble study was done: Normal left ventricular cavity size. Normal left ventricular ?systolic function. Left ventricular ejection fraction is estimated at 60-65 %. No regional wall motion abnormalities. ?Normal diastolic function. No evidence of intracardiac shunt based on bubble study. No significant erythema was noted on telemetry monitoring during the hospital stay, repeat CT head without contrast was also done: No evidence of intracranial hemorrhage Suspected subacute LEFT MCA territory infarct appears stable described above. Mild mass effect in the LEFT temporal horn is unchanged. This can be further evaluated with MRI.No hydrocephalus.Moderate chronic small vessel changes. Mild parenchymal volume loss. Intracranial vascular calcificat ion. Prior to discharge patient was started on amlodipine 10 mg p.o. daily for better blood pressure management, he was also discharged on event monitor, for a month, patient may need JOSE in future if any similar reoccurrence of stroke happens.He will follow neurology as outpatient. During the hospital stay patient was also evaluated by PT OT and speech, he had no significant weakness, was ambulating fine, no difficulty with swallowing. He was discharged home in stable condition. Physical Exam HENMT: COMMON NORMALS: normocephalic and atraumatic HEAD & SCALP: normocephalic and atraumatic Resp: COMMON NORMALS: normal respiratory effort, No retractions, No use of accessory muscles and clear to auscultation bilaterally EFFORT & INSPECTION: Yes symmetric chest movement AUSCULTATION: clear to auscultation bilaterally Cardio: COMMON NORMALS: regular rate, regular rhythm, S1 normal heart sound present, S2 normal heart sound present, No gallops present (Cardio), No murmurs present (Cardio), No rub (Cardio) and Peripheral pulses 2+ throughout RATE: regular rate RHYTHM: regular rhythm HEART SOUNDS: S1 normal heart sound present and S2 normal heart sound present PERIPHERAL PULSES: Peripheral pulses 2+ throughout GI: COMMON NORMALS: Normal to inspection, nondistended, normoactive bowel sounds present, Soft to palpation, non-tender, No hepatosplenomegaly present and no masses AUSCULTATION: Yes normoactive bowel sounds PALPATION: Yes Soft to palpation and Yes No hepatosplenomegaly present RECTAL EXAM: Yes deferred Extremity: COMMON NORMALS: no clubbing, cyanosis or edema and no pedal edema Discharge Data Studies Completed and Pending Completed Studies During Hospitalization Category Date Time Status CT head thrombolytic [id number] Stat Cat Scan 01/28/23 16:[address] head wo con* [id number] Routine Cat Scan 01/29/23 11:45 Completed CTA head neck [CT angio headneck* [id number]] Stat Cat Scan 01/28/23 16:35 Completed CV. echo w/w bubble cont [id number] Routine Ultrasound 01/28/23 19:23 Completed Pending at discharge Category Date Time Status Complete Blood Count w/Auto AM LABS Lab 01/31/23 04:00 Ordered Comprehensive Metabolic Panel AM LABS Lab 01/31/23 04:00 Ordered Radiology Impressions Head/Neck CTA 01/28/23 16:35 IMPRESSION: No significant abnormality involving the major intracranial arteries. IMPRESSION: No acute arterial abnormality identified in the neck. REFERENCES: NASCET CRITERIA. The degree of stenosis in the cervical segment of the internal carotid artery is based on NASCET criteria. Normal is no stenosis. Mild is less than 50% stenosis. Moderate is 50-69% stenosis. Severe is 70% to 99% stenosis. Total occlusion is no detectable patent lumen. Head CT 01/29/23 11:45 IMPRESSION: 1. No evidence of intracranial hemorrhage 2. Suspected subacute LEFT MCA territory infarct appears stable described above. Mild mass effect in the LEFT temporal horn is unchanged. This can be further evaluated with MRI. 3. No hydrocephalus. 4. Moderate chronic small vessel changes. Mild parenchymal volume loss. 5. Intracranial vascular calcification. Laboratory Results WBC 7.0 10^3/uL (4.0-10.0) 01/30/23 02:36 RBC 4.69 10^6/uL (4.1-5.3) 01/30/23 02:36 Hgb 14.7 g/dL (11.7-16.6) 01/30/23 02:36 Hct 43.7 % (42.0-52.0) 01/30/23 02:36 MCV 93.2 fl (80-94) 01/30/23 02:36 MCH 31.3 pg (28.0-34.0) 01/30/23 02:36 MCHC 33.6 g/dL (30.0-36.0) 01/30/23 02:36 RDW 12.8 % (12.1-15.1) 01/30/23 02:36 Plt Count 176 10^3/cmm (130-400) 01/30/23 02:36 MPV 9.5 fL (7.4-10.4) 01/30/23 02:36 Neut % (Auto) 52.5 % 01/30/23 02:36 Lymph % (Auto) 34.5 % 01/30/23 02:36 [place] % (Auto) 6.2 % 01/30/23 02:36 Eos % (Auto) 5.3 % 01/30/23 02:36 Baso % (Auto) 1.2 % 01/30/23 02:36 Neut # (Auto) 3.65 10^3/uL (1.8-7.7) 01/30/23 02:36 Lymph # (Auto) 2.4 10^3/uL (0.8-4.8) 01/30/23 02:36 [place] # (Auto) 0.4 10^3/uL (0.2-0.9) 01/30/23 02:36 Eos # (Auto) 0.4 10^3/uL (0.0-0.8) 01/30/23 02:36 Baso # (Auto) 0.1 10^3/uL (0.0-0.1) 01/30/23 02:36 Nucleated RBC % (auto) 0 % 01/30/23 02:36 Nucleated RBCs # 0.0 /100WBC 01/30/23 02:36 PT 13.80 SECONDS (12.1-14.9) 01/28/23 16:25 INR 1.02 (0.8-1.2) 01/28/23 16:25 APTT 28.6 SECONDS (23.9-36.7) 01/28/23 16:25 Sodium 139 mmol/L (136-145) 01/30/23 02:36 Potassium 4.6 mmol/L (3.5-5.1) 01/30/23 02:36 Chloride 106 mmol/L (98-107) 01/30/23 02:36 Carbon Dioxide 25 mmol/L (22-29) 01/30/23 02:36 Anion Gap 12.6 (5-19) 01/30/23 02:36 BUN 11 mg/dL (8-23) 01/30/23 02:36 Creatinine 0.9 mg/dL (0.7-1.2) 01/30/23 02:36 GFR Calculation Not Reportable 01/30/23 02:36 Glucose 84 mg/dL (65-115) 01/30/23 02:36 Calculated Osmolality 287 mOsm/kg (285-295) 01/30/23 02:36 Calcium 8.7 mg/dL (8.5-10.5) 01/30/23 02:36 Magnesium 2.2 mg/dL (1.7-2.3) 01/29/23 02:13 Total Bilirubin 0.5 mg/dL (0.15-1.2) 01/30/23 02:36 AST 17 U/L (0-40) 01/30/23 02:36 ALT 16 U/L (0-41) 01/30/23 02:36 Alkaline Phosphatase 59 U/L (40-130) 01/30/23 02:36 Total Protein 6.7 g/dL (6.6-8.7) 01/30/23 02:36 Albumin 3.8 g/dL (3.5-5.2) 01/30/23 02:36 Globulin 2.9 g/dL (1.3-4.6) 01/30/23 02:36 Triglycerides 72 mg/dL (0-150) 01/29/23 02:13 Cholesterol 125 mg/dL (0-200) 01/29/23 02:13 LDL Cholesterol, Calc 70 mg/dL (50-129) 01/29/23 02:13 HDL Cholesterol 41 mg/dL (60-100) L 01/29/23 02:13 LDL/HDL Ratio 1.71 RATIO (0.00-3.22) 01/29/23 02:13 Cholesterol/HDL Ratio 3.05 mg/dL (1.0-5.00) 01/29/23 02:13 TSH 0.82 uIU/mL (0.27-4.20) 01/29/23 02:13 Urine Color Yellow (Yellow) 01/28/23 19:08 Urine Appearance Clear (CLEAR) 01/28/23 19:08 Urine pH 7 (5-7) 01/28/23 19:08 Ur Specific [place] 1.005 (1.005-1.030) 01/28/23 19:08 Urine Protein Neg (Negative) 01/28/23 19:08 Urine Glucose (UA) Norm (Normal) 01/28/23 19:08 Urine Ketones 1+ (Negative) H 01/28/23 19:08 Urine Blood Neg (Negative) 01/28/23 19:08 Urine Nitrate Negative (Negative) 01/28/23 19:08 Urine Bilirubin Neg (Negative) 01/28/23 19:08 Urine Urobilinogen Norm mg/dL (Negative) 01/28/23 19:08 Ur Leukocyte Esterase Negative (Negative) 01/28/23 19:08 Urine Opiates Screen Negative ng/mL (Negative) 01/28/23 19:08 Ur Barbiturates Screen Negative ng/mL (Negative) 01/28/23 19:08 Ur Phencyclidine Scrn Negative ng/mL (Negative) 01/28/23 19:08 Ur Amphetamines Screen Negative ng/mL (Negative) 01/28/23 19:08 U Benzodiazepines Scrn Negative ng/mL (Negative) 01/28/23 19:08 Urine Cocaine Screen Negative ng/mL (Negative) 01/28/23 19:08 U Marijuana (THC) Screen Negative ng/mL (Negative) 01/28/23 19:08 Vitals Last Vital Signs Temp 97.8 F 01/30/23 10:00 Pulse 66 01/30/23 10:00 Resp 16 01/30/23 10:00 BP 191/92 01/30/23 10:00 Pulse Ox 96 01/30/23 10:00 O2 Del Method Room Air 01/30/23 06:00 O2 Flow Rate 2 01/29/23 11:50 Discharge Plan Discharge Patient Disposition: Home Condition: Stable Prescriptions: New atorvastatin 40 mg Tablet 40 mg PO BEDTIME 30 Days Qty: 30 3RF clopidogrel 75 mg Tablet 75 mg PO DAILY 30 Days Qty: 30 2RF aspirin 81 mg Tablet,Delayed Release (Dr/Ec) 81 mg PO DAILY 30 Days Qty: 30 3RF amlodipine 10 mg tablet 10 mg PO DAILY 30 Days Qty: 30 3RF Discontinued aspirin [Aspir-81] 81 mg Tablet,Delayed Release (Dr/Ec) 81 mg PO Q6H PRN (Reason: Pain) Discharge Orders: Discharge Order (Routine); Ordered 01/30/23 Ordered By: Crescencio Fonseca Other Ambulatory Orders: MCT/Event Monitor 30 Days (Routine) Timeframe: 1 Week Facility: [facility] - Location: Radiology Ordered By: Crescencio Fonseca Referrals: Janell Oliver MD [Physician] - 1 month (appointment scheduled: February at time of 09:10 am ) Tuan Cooney FNP-C [Primary Care Provider] - 1 week (appointment scheduled : January at time of 3:40 pm) Patient Instructions: Aspirin (By mouth), Amlodipine (By mouth), Atorvastatin (By mouth), Clopidogrel (By mouth), Ischemic Stroke (DC), Hypertension in the Older Adult (DC), Opioid Safety, Stroke Stoplight Activity Restrictions/Additional Instructions: please come to [facility] on February at time of 09:00 am for placement on 30 day monitor placement Discharge Attestations Time Spent in Discharge Care*: less than 30 min Quality Metrics Clinical Quality Measures [ No reported AMI, CVA or VTE this stay] Coding Level of Care Code Acute Code for Chg Fwd Diagnoses CVA (cerebral vascular accident) I63.9 Essential hypertension I10
== END 2023-01-30 12:41 | disposition home or self-care (01) | DRG 61 ==
LOC: ER 17:29 → ICU 17:41
PROVIDERS: Admitting Provider Internal Medicine; Emergency Provider Family Medicine; PCP Nurse Practitioner; Visit Provider Internal Medicine
DX: I63.512 Cerebral infarction due to unspecified occlusion or stenosis of left middle cerebral artery (principal); G93.6 Cerebral edema; G81.94 Hemiplegia, unspecified affecting left nondominant side; R47.01 Aphasia; R47.81 Slurred speech; I10 Essential (primary) hypertension; H91.90 Unspecified hearing loss, unspecified ear; E66.9 Obesity, unspecified; Z68.36 Body mass index [BMI] 36.0-36.9, adult; I25.2 Old myocardial infarction; R29.710 NIHSS score 10; Z79.02 Long term (current) use of antithrombotics/antiplatelets; Z79.82 Long term (current) use of aspirin
CPT/HCPCS: 36415; 70450; 70496; 70498; 80053; 80061; 80306; 81003; 83735; 84443; 85025; 85610; 85730; 92507; 92523; 92526; 92610; 93005; 96361; 96372; 96374; 97161; 97165; 99291; C8929; J1650; J2997; J7030; Q9967

== ENCOUNTER 2023-02-15 19:51 | Observation (INO) | payer OTHER, SELFPAY ==
[2023-02-15] VITALS (9 sets, daily range): BP systolic 135–190; BP diastolic 68–92; PULSE 63–76; RESP 18; TEMP 36.4; O2SAT 93–95; BMI 36.1
--- NOTE | 2023-02-15 20:14 | CTR_ITS ---
PROCEDURE INFORMATION: Exam: CT Head Without Contrast Exam date and time: 02/15/2023 8:30 PM Age: 77 years old Clinical indication: Pain; Speech disturbance; Headache; Patient HX: C/O PARKINSON with transient dysphasia. Left mca territory ischemia noted on head CT from 01/28/2023. ; Additional info: Left head pain, recent CVA TECHNIQUE: Imaging protocol: Computed tomography of the head without contrast. Radiation optimization: All CT scans at this facility use at least one of these dose optimization techniques: automated exposure control; mA and/or kV adjustment per patient size (includes targeted exams where dose is matched to clinical indication); or iterative reconstruction. REPORTING DATA: Count of CT and Cardiac NM exams in prior 12 months: This patient has received 4 known CTs and 0 known cardiac nuclear medicine studies in the 12 months prior to the current study. COMPARISON: CT head wo con* [id number] 01/29/2023 12:04 PM RADIATION DOSE METRICS: Total DLP (mGy-cm): 1106.48 FINDINGS: Brain: No hemorrhage. Evolving infarcts in the left MCA distribution which includes portions of the left frontal, parietal, and temporal lobes as well as the left basal ganglia. Cerebral ventricles: No ventriculomegaly. Paranasal sinuses: Visualized sinuses are unremarkable. No fluid levels. Mastoid air cells: Visualized mastoid air cells are well aerated. Bones/joints: Unremarkable. No acute fracture. Soft tissues: Unremarkable. CT/CT head wo con* [id number] IMPRESSION: Evolving infarcts in the left MCA distribution.
[2023-02-15 20:33] LABS: Basophils # 0.1 10^3/uL (0.0-0.1); Basophils % 1.4 %; Eosinophils # 0.4 10^3/uL (0.0-0.8); Eosinophils % 4.7 %; Hematocrit 44.6 % (42.0-52.0); Hemoglobin 15.2 g/dL (11.7-16.6); Lymphocytes # 2.1 10^3/uL (0.8-4.8); Lymphocytes % 27.5 %; Mean Corpuscular HGB Conc 34.1 g/dL (30.0-36.0); Mean Corpuscular Volume 90.8 fl (80-94); Mean Platelet Volume 8.9 fL (7.4-10.4); Monocytes # 0.5 10^3/uL (0.2-0.9); Neutrophils # 4.49 10^3/uL (1.8-7.7); Neutrophils % 59.3 %; Nucleated Red Blood Cells % 0 %; Platelet Count 205 10^3/cmm (130-400); Red Blood Count 4.91 10^6/uL (4.1-5.3); Red Cell Distribution Width 12.3 % (12.1-15.1); White Blood Count 7.6 10^3/uL (4.0-10.0)
--- NOTE | 2023-02-15 20:44 | ECG_ITS ---
[facility] Test Date: 2023-02-15 Pat Name: Mani Manning Department: Room: Gender: Male Ash Handler: : 1945 Requested By: Pérez Morales Order Number: [id number] Church MD: Matt Malik M.D. Measurements Intervals [place] Rate: 70 P: 52 CT: 179 QRS: -6 QRSD: 102 T: 12 QT: 389 QTc: 421 Interpretive Statements SINUS RHYTHM MINIMAL VOLTAGE CRITERIA FOR LVH, CONSIDER NORMAL VARIANT [MEETS CRITERIA IN ONE OF: R(aVL), S(V1), R(V5), R(V5/V6)+S(V1)] Compared to ECG 01/28/2023 16:20:37 No significant changes Electronically Signed On 02-16-2023 1:07:50 CDT by Matt Malik M.D. [email or web address]
[2023-02-15 20:49] LABS: Alanine Aminotransferase 15 U/L (0-41); Albumin Level 4.3 g/dL (3.5-5.2); Alkaline Phosphatase 75 U/L (40-130); Anion Gap 14.9 (5-19); Aspartate Amino Transferase 15 U/L (0-40); Blood Urea Nitrogen 17 mg/dL (8-23); C Reactive Protein 5.3 mg/L (0.0-4.9); Calcium 8.9 mg/dL (8.5-10.5); Carbon Dioxide 24 mmol/L (22-29); Chloride 100 mmol/L (98-107); Globulin 3.2 g/dL (1.3-4.6); Glucose 92 mg/dL (65-115); Magnesium 2.1 mg/dL (1.7-2.3); Osmolality Calculated 281 mOsm/kg (285-295); Potassium 3.9 mmol/L (3.5-5.1); Sodium 135 mmol/L (136-145); Total Bilirubin 0.6 mg/dL (0.15-1.2); Total Protein 7.5 g/dL (6.6-8.7)
--- NOTE | 2023-02-15 20:59 | ED_ITS ---
HPI - Neuro Symptoms/Deficit General: Chief Complaint: Neuro Symptoms/Deficit Stated Complaint: Possible Stoke Time Seen by Provider: 02/15/23 20:07 History of Present Illness: Patient presents to the ER with complaints of difficulty articulating his words and having a headache 2 days ago on his left temporal region lasted about 5 hours. Headache is gone now. Patient did recently have a stroke within the last month and a left MCA distribution pattern. Patient was inpatient in this hospital after receiving tPA. He states when he went home he was feeling better but over the last 2 days since he had this intermittent headache his speech and confusion has been going downhill. Patient has no localizing neurologic signs at the current besides mild expressive aphasia and mild slurring of speech occasionally. Patient is currently taking his 4 medicines from the last visit w [facility] include amlodipine, aspirin, atorvastatin, and Plavix. Review of Systems General: Reports: 10 or more systems reviewed and unremarkable except in HPI and below PFSH ED PFSH: Medical History Atypical chest pain EKG done on 08/31/2019 in the office revealed sinus bradycardia with a rate of [address]-T changes. CVA (cerebral vascular accident) Diverticulosis Dyspnea on exertion Essential hypertension Hearing loss Left acute arterial ischemic stroke, MCA (middle cerebral artery) Obesity Obesity (BMI 30-39.9) Surgical History History of lipoma June 2022 Umbilical hernia Umbilical done in January of 2019. Family History Mother , of CA at the age of 84 CAD (coronary artery disease) Cancer Denies family history of Diabetes Stroke Social History Smoking and tobacco status: never smoked Second hand smoke exposure: No Smoking risk assessment/counseling performed?: No Alcohol intake: never Desire information about alcohol rehabilitation?: No Counseling given: No Substance/Drug Use: never Desire information about substance/drug rehabilitation?: No Counseling given: No Adopted: No Caregiver/support person: No Lives independently: Yes Household members: spouse Housing: House Marital status: Number of children: 0 service: Yes branch: [employer] Current occupational status: retired Do you think of yourself as: Straight/Heterosexual Current gender identity: Male Physical Exam Const: COMMON NORMALS: no acute distress, average body habitus, patient oriented x3, no limitations, healthy appearing, alert and well nourished HENMT: COMMON NORMALS: normocephalic, atraumatic, hearing grossly normal bilaterally, external ears normal, Normal external nose present and moist oral mucous membranes HEAD & SCALP: normocephalic and atraumatic NOSE: Normal external nose present EXTERNAL EAR: Yes external ears normal Eye: COMMON NORMALS: Equal, round and reactive pupils present, EOMs intact bilaterally, conjunctivae normal and no scleral icterus CONJUNCTIVA: Yes conjunctivae normal PUPIL: Yes Equal, round and reactive pupils present Neck/C-Spine: COMMON NORMALS: full ROM, no lymphadenopathy, no meningeal signs, no JVD and Thyroid normal THYROID: Thyroid normal Lymph: LYMPHATIC: no lymphadenopathy noted Chest: COMMONS NORMALS: normal inspection of the chest and normal palpation of entire chest wall Resp: COMMON NORMALS: normal respiratory effort, No retractions, No use of accessory muscles and clear to auscultation bilaterally AUSCULTATION: clear to auscultation bilaterally Cardio: COMMON NORMALS: no JVD, regular rate, regular rhythm, S1 normal heart sound present, S2 normal heart sound present, No gallops present (Cardio), No clicks present (Cardio), No murmurs present (Cardio) and No rub (Cardio) RATE: regular rate RHYTHM: regular rhythm HEART SOUNDS: S1 normal heart sound present and S2 normal heart sound present GI: COMMON NORMALS: Normal to inspection, nondistended, normoactive bowel sounds present, Soft to palpation, non-tender, No hepatosplenomegaly present and no masses PALPATION: Yes Soft to palpation and Yes No hepatosplenomegaly present : COMMON NORMALS: Yes no CVA tenderness BLADDER/KIDNEY EXAM: Yes no CVA tenderness Back/Pelvis: COMMON NORMALS: no CVA tenderness Neuro: COMMON NORMALS: patient oriented x3 SENSORIUM/ORIENTATION: Yes alert MENINGEAL SIGNS: Yes no meningeal signs OTHER: Mild expressive aphasia, word finding difficulties, minimal slurring speech. Course Vital Signs: Vital signs: Vital Signs Temperature 97.5 F L 02/15/23 19:58 Pulse Rate 65 02/15/23 22:30 Respiratory Rate 18 02/15/23 19:58 Blood Pressure 146/68 02/15/23 22:30 Pulse Oximetry 93 02/15/23 22:30 Oxygen Delivery Me thod Room Air 02/15/23 22:30 MDM - Neuro Symptoms/Deficit Medical Decision Making Patient presents to the ER with complaints of possible new onset CVA/headache. Patient had a CVA approximately 3 weeks ago was treated with tPA and his symptoms resolved. Approximately 2 days ago patient started having a headache started having difficulty articulating his words and word finding and more confusion and slurring of his speech. Today blood work was obtained which was essentially benign however during the head CT it showed a evolving infarct in t he left MCA distribution. Repeat head and neck CTA was negative for stenosis and occlusion. [facility] was called recommended the CTA and head MRI. They said we were medically managing this patient adequately currently. Dr. Rosas was consulted for possible observation due to evolving stroke. Patient will be admitted to [facility] for an MRI in the morning. Differential Diagnosis Likely cerebrovascular accident and transient cerebral ischemia; Unlikely carpal tunnel syndrome, convulsions, delirium, subarachnoid hemorrhage, peripheral ne uropathy or multiple sclerosis Medical Records I reviewed the patient's medical records. Lab Data I reviewed the patient's lab results. 02/15/23 20:25 02/15/23 20:[address] 02/15/23 20:14 IMPRESSION: Evolving infarcts in the left MCA distribution. Head/Neck CTA 02/15/23 21:56 IMPRESSION: No large vessel stenosis or occlusion. IMPRESSION: No stenosis or occlusion. REFERENCES: NASCET CRITERIA. The degree of stenosis in the cervical segment of the internal carotid artery is based on NASCET criteria. Normal is no stenosis. Mild is less than 50% stenosis. Moderate is 50-69% stenosis. Severe is 70% to 99% stenosis. Total occlusion is no detectable patent lumen. Laboratory Results WBC 7.6 10^3/uL (4.0-10.0) 02/15/23 20:25 RBC 4.91 10^6/uL (4.1-5.3) 02/15/23 20:25 Hgb 15.2 g/dL (11.7-16.6) 02/15/23 20:25 Hct 44.6 % (42.0-52.0) 02/15/23 20:25 MCV 90.8 fl (80-94) 02/15/23 20:25 MCH 31.0 pg (28.0-34.0) 02/15/23 20: MCHC 34.1 g/dL (30.0-36.0) 02/15/23 20:25 RDW 12.3 % (12.1-15.1) 02/15/23 20: Plt Count 205 10^3/cmm (130-400) 02/15/23 20:25 MPV 8.9 fL (7.4-10.4) 02/15/23 20:25 Neut % (Auto) 59.3 % 02/15/23 20:25 Lymph % (Auto) 27.5 % 02/15/23 20:25 [place] % (Auto) 7.0 % 02/15/23 20:25 Eos % (Auto) 4.7 % 02/15/23 20:25 Baso % (Auto) 1.4 % 02/15/23 20: Neut # (Auto) 4.49 10^3/uL (1.8-7.7) 02/15/23 20:25 Lymph # (Auto) 2.1 10^3/uL (0.8-4.8) 02/15/23 20:25 [place] # (Auto) 0.5 10^3/uL (0.2-0.9) 02/15/23 20:25 Eos # (Auto) 0.4 10^3/uL (0.0-0.8) 02/15/23 20:25 Baso # (Auto) 0.1 10^3/uL (0.0-0.1) 02/15/23 20:25 Nucleated RBC % (auto) 0 % 02/15/23 20: Nucleated RBCs # 0.0 /100WBC 02/15/23 20:25 ESR 11 mm/hr (0-10) H 02/15/23 20:25 Sodium 135 mmol/L (136-145) L 02/15/23 20:25 Potassium 3.9 mmol/L (3.5-5.1) 02/15/23 20:25 Chloride 100 mmol/L (98-107) 02/15/23 20:25 Carbon Dioxide 24 mmol/L (22-29) 02/15/23 20:25 Anion Gap 14.9 (5-19) 02/15/23 20:25 BUN 17 mg/dL (8-23) 02/15/23 20:25 Creatinine 1.1 mg/dL (0.7-1.2) 02/15/23 20:25 GFR Calculation Not Reportable 02/15/23 20:25 Glucose 92 mg/dL (65-115) 02/15/23 20:25 Calculated Osmolality 281 mOsm/kg (285-295) L 02/15/23 20:25 Calcium 8.9 mg/dL (8.5-10.5) 02/15/23 20:25 Magnesium 2.1 mg/dL (1.7-2.3) 02/15/23 20:25 Total Bilirubin 0.6 mg/dL (0.15-1.2) 02/15/23 20:25 AST 15 U/L (0-40) 02/15/23 20:25 ALT 15 U/L (0-41) 02/15/23 20:25 Alkaline Phosphatase 75 U/L (40-130) 02/15/23 20:25 C-Reactive Protein 5.3 mg/L (0.0-4.9) H 02/15/23 20:25 Total Protein 7.5 g/dL (6.6-8.7) 02/15/23 20:25 Albumin 4.3 g/dL (3.5-5.2) 02/15/23 20:25 Globulin 3.2 g/dL (1.3-4.6) 02/15/23 20:25 Discharge Plan Discharge Patient Disposition: Placed in Observation Clinical Impression: Left acute arterial ischemic stroke, MCA (middle cerebral artery) Condition: Stable Prescriptions: No Action amlodipine 10 mg tablet 10 mg PO DAILY 30 Days Qty: 30 3RF [facility] Inst[facility] clopid[facility] 75 mg tablet 75 mg PO DAILY 30 Days Qty: 30 2RF Rx Instructions: [facility] atorvastatin 40 mg tablet 40 mg PO BEDTIME 30 Days Qty: 30 3RF Rx Instructions: [facility] aspirin 81 mg Tablet,Delayed Release (Dr/Ec) 81 mg PO DAILY 30 Days Qty: 30 3RF Referrals: Tuan Cooney, HAND PACKAGER-C [Primary Care Provider] - Coding Level of Care Code ED Customer Service Manager for Mandy Murray
[2023-02-15 21:03] LABS: Erythrocyte Sedimentation Rate 11 mm/hr (0-10)
--- NOTE | 2023-02-15 21:56 | CTR_ITS ---
PROCEDURE INFORMATION: Exam: CTA Head With Contrast, Arteriography Exam date and time: 02/15/2023 10:03 PM Age: 77 years old Clinical indication: Pain; Headache and speech disturbance; Patient HX: Evolution of left mca infarct compared to prior. C/O left sided PARKINSON with transient dysphasia. ; Additional info: Evlolving left mca CVA, confusion, word finding difficulties TECHNIQUE: Imaging protocol: Computed tomographic angiography of the head with contrast. Exam focused on the arteries. 3D rendering (Not supervised by radiologist): MIP and/or 3D reconstructed images were created by the technologist. Radiation optimization: All CT scans at this facility use at least one of these dose optimization techniques: automated exposure control; mA and/or kV adjustment per patient size (includes targeted exams where dose is matched to clinical indication); or iterative reconstruction. Contrast material: OMNI 350; Contrast volume: 100 ml; Contrast route: INTRAVENOUS (IV); REPORTING DATA: Count of CT and Cardiac NM exams in prior 12 months: This patient has received 4 known CTs and 0 known cardiac nuclear medicine studies in the 12 months prior to the current study. COMPARISON: CT angio headneck* [id number] 01/28/2023 4:42 PM RADIATION DOSE METRICS: Total DLP (mGy-cm): 560.6 FINDINGS: ANTERIOR CIRCULATION: Right internal carotid artery: Intracranial segment is patent with no significant stenosis. No aneurysm. Right middle cerebral artery: No occlusion or significant stenosis. No aneurysm. Right anterior cerebral artery: No occlusion or significant stenosis. No aneurysm. Left internal carotid artery: Intracranial segment is patent with no significant stenosis. No aneurysm. Left middle cerebral artery: No occlusion or significant stenosis. No aneurysm. Left anterior cerebral artery: No occlusion or significant stenosis. No aneurysm. POSTERIOR CIRCULATION: Right vertebral artery: No occlusion or significant stenosis. No aneurysm. Left vertebral artery: No occlusion or significant stenosis. No aneurysm. Basilar artery: No occlusion or significant stenosis. No aneurysm. Right posterior cerebral artery: No occlusion or significant stenosis. No aneurysm. Left posterior cerebral artery: No occlusion or significant stenosis. No aneurysm. Brain: Redemonstrated areas of cytotoxic edema in the left MCA distribution including aspects of the left frontal, parietal, and temporal lobes as well as the left basal ganglia. Cerebral ventricles: No ventriculomegaly. Bones/joints: Unremarkable. No acute fracture. Soft tissues: Unremarkable. PROCEDURE INFORMATION: Exam: CTA Neck With Contrast Exam date and time: 02/15/2023 10:03 PM Age: 77 years old Clinical indication: Pain; Headache and speech disturbance; Patient HX: Evolution of left mca infarct compared to prior. C/O left sided PARKINSON with transient dysphasia. ; Additional info: Evlolving left mca CVA, confusion, word finding difficulties TECHNIQUE: Imaging protocol: Computed tomographic angiography of the neck with contrast. 3D rendering (Not supervised by radiologist): MIP and/or 3D reconstructed images were created by the technologist. Radiation optimization: All CT scans at this facility use at least one of these dose optimization techniques: automated exposure control; mA and/or kV adjustment per patient size (includes targeted exams where dose is matched to clinical indication); or iterative reconstruction. Contrast material: OMNI 350; Contrast volume: 100 ml; Contrast route: INTRAVENOUS (IV); REPORTING DATA: Count of CT and Cardiac NM exams in prior 12 months: This patient has received 4 known CTs and 0 known cardiac nuclear medicine studies in the 12 months prior to the current study. COMPARISON: CT angio headneck* [id number] 01/28/2023 4:42 PM RADIATION DOSE METRICS: Total DLP (mGy-cm): 560.6 FINDINGS: Right common carotid artery: No stenosis. No dissection or occlusion. Right internal carotid artery: No stenosis of the extracranial segment. No dissection or occlusion. Right external carotid artery: No occlusion or stenosis of the origin. Left common carotid artery: No stenosis. No dissection or occlusion. Left internal carotid artery: No stenosis of the extracranial segment. No dissection or occlusion. Left external carotid artery: No occlusion or stenosis of the origin. Right vertebral artery: No stenosis. No dissection or occlusion. Left vertebral artery: No stenosis. No dissection or occlusion. Soft tissues: Normal. No significant soft tissue swelling. Bones/joints: No acute fracture. CT/CT angio headneck* [id number] IMPRESSION: No large vessel stenosis or occlusion. IMPRESSION: No stenosis or occlusion. REFERENCES: NASCET CRITERIA. The degree of stenosis in the cervical segment of the internal carotid artery is based on NASCET criteria. Normal is no stenosis. Mild is less than 50% stenosis. Moderate is 50-69% stenosis. Severe is 70% to 99% stenosis. Total occlusion is no detectable patent lumen.
[2023-02-15] MEDS: iohexol 350 mg/mL 500 mL Btl (per mL) IV (22:10)
--- NOTE | 2023-02-15 23:00 | MRR_ITS ---
PROCEDURE INFORMATION: Exam: MR Head Without Contrast Exam date and time: 02/15/2023 11:40 PM Age: 77 years old Clinical indication: Condition or disease; Cerebrovascular disease; Cerebral infarction; Additional info: Evolving left mca stroke TECHNIQUE: Imaging protocol: Magnetic resonance imaging of the head without contrast. COMPARISON: CT head wo con* [id number] 02/15/2023 8:30 PM FINDINGS: Brain: Of the left MCA territory in the predominantly temporal lobe, there is a large hyperintense FLAIR area measuring about 84 x 44 mm. This is consistent with the known left MCA stroke on the same-day head CT. There may be some cystic encephalomalacia on series 601, image 13, which may imply a more chronic appearance. This has vague diffusion restriction, likely subacute in age. A 1 mm rightward midline shift is present. There is no overt or acute appearing diffusion restriction seen. There is moderate atrophy and mild chronic cerebral white matter ischemic change. Cerebral ventricles: No evidence of hydrocephalus or ventriculomegaly. Bones/joints: Unremarkable. Paranasal sinuses: No suspicious or significant sinus disease is apparent. Mastoid air cells: The visualized mastoid air cells are clear. Orbital cavities: Unremarkable. Vasculature: See same-day head CTA. Soft tissues: Unremarkable. MR/MR head wo con* [id number] IMPRESSION: 1. 8.4 cm pytaexqn-mp-rwooijs left MCA stroke. No hyperacute stroke identified. 2. Minimal mass effect again seen. 3. Mkit-dv-igomjlku age-related change. Overall, the findings are similar to the same-day head CT.
--- NOTE | 2023-02-15 23:45 | PC.NURSE ---
PT TO MRI VIA WHEELCHAIR.
--- NOTE | 2023-02-16 00:20 | PC.NURSE ---
PT BACK FROM MRI.
[2023-02-16 00:30] VITALS: BP 129/69; PULSE 67; O2SAT 93
--- NOTE | 2023-02-16 00:32 | P.HP_ITS ---
Providers/Chief Complaint Admitting Physician: Anahi Rosas MD Primary Care Provider: Tuan Cooney, ROBBY-C Chief Complaint: Possible Stoke History of Present Illness Mani Manning is a 77 year old male past medical history of left MCA stroke 2 weeks ago, diverticulosis, essential hypertension, obesity presented to the hospital today for word finding difficulty and a headache that he had 2 days ago but now it is better. He did have a stroke on 28 January and was seen by neurology and patient as well. He was started on aspirin Plavix atorvastatin amlodipine and set up for Holter monitor at discharge. He is about to follow-up with neurology as an outpatient. He has an appointment with neuro on Saturday and Holter monitor will be set up on . Patient has been compliant with his medications. He was seen at bedside with presence of and granddaughter there. To be seen by telehealth consent was obtained. Family states that he is gotten a lot better however over the last few days that he had some word finding difficulty and a headache. The headache is now completely resolved at this point. Today his speech seemed to be worse and by that they mean word finding difficulty and therefore decided to come to the hospital. Otherwise he denies chest pain, shortness of breath, nausea vomiting diarrhea abdominal pain or any other symptoms. He does not have any motor symptoms or sensory symptoms either. Of note patient did get tPA at his previous visit when he had the stroke. ED course: On arrival blood pressure 146/60, respirate 18, pulse 65, temperature 97.5, saturating 93% on room air. CT head negative for acute new stroke. Subsequently [facility] was consulted with telemetry neurology service and case was discussed with Dr. Teresa. He recommended to get a CTA head and neck and the head MRI. CTA head and neck did not show any occlusion and head MRI shows subacute to chronic evolving stroke with minimal mass effect. Patient was requested to be admitted by hospitalist service for observation due to evolving stroke. Medications/Allergies Home Medications Medication Instructions Recorded Confirmed Last Taken Type aspirin 81 mg tablet,delayed 81 mg PO DAILY 30 days #30 tabs 01/30/23 02/16/23 1 Day Ago Rx release ~02/15/23 amlodipine 10 mg tablet 10 mg PO DAILY 30 days #30 tabs 02/07/23 02/16/23 1 Day Ago Rx ~02/15/23 atorvastatin 40 mg tablet 40 mg PO BEDTIME 30 days #30 tabs 02/07/23 02/16/23 2 Days Ago Rx ~02/14/23 clopidogrel 75 mg tablet 75 mg PO DAILY 30 days #30 tabs 02/07/23 02/16/23 1 Day Ago Rx ~02/15/23 Allergies Allergy/AdvReac Type Severity Reaction Status Date / Time hydrochlorothiazide Allergy Weakness/di Verified 02/07/23 15:43 zziness Sulfa (Sulfonamide Allergy rashes Verified 02/07/23 15:43 Antibiotics) PFSH Acute PFSH: Medical History (Updated 02/16/23 @ 03:53 by Anahi Rosas MD) Atypical chest pain EKG done on 08/31/2019 in the office revealed sinus bradycardia with a rate of [address]-T changes. CVA (cerebral vascular accident) Diverticulosis Dyspnea on exertion Essential hypertension Hearing loss Left acute arterial ischemic stroke, MCA (middle cerebral artery) Obesity Obesity (BMI 30-39.9) Surgical History History of lipoma June 2022 Umbilical hernia Umbilical done in January of 2019. Family History Mother , of ID at the age of 84 CAD (coronary artery disease) Cancer Denies family history of Diabetes Stroke Social History Smoking and tobacco status: never smoked Second hand smoke exposure: No Smoking risk assessment/counseling performed?: No Alcohol intake: never Desire information about alcohol rehabilitation?: No Counseling given: No Substance/Drug Use: never Desire information about substance/drug rehabilitation?: No Counseling given: No Adopted: No Caregiver/support person: No Lives independently: Yes Household members: spouse Housing: House Marital status: Number of children: 0 service: Yes branch: [employer] Current occupational status: retired Do you think of yourself as: Straight/Heterosexual Current gender identity: Male Vitals/I&O/Wt Last Vital Signs Temp 97.5 F L 02/15/23 19:58 Pulse 63 02/15/23 23:30 Resp 18 02/15/23 19:58 BP 138/70 02/15/23 23:30 Pulse Ox 93 02/15/23 23:30 O2 Del Method Room Air 02/15/23 23:30 Weight last 48 hrs Weight 111.13 kg Physical Exam Narrative: General: Alert oriented x3, patient seen laying in bed, little hard of hearing. HEENT: Normocephalic, atraumatic, EOMI, breathing comfortably on room air. Cardio: Regular rate rhythm, normal S1-S2, no murmurs Respiratory: Clear to auscultation bilaterally no wheezes, rhonchi GI: Abdomen soft, nontender, nondistended bowel sounds + Behavior: Appropriate and cooperative Extremities: no edema, no cyanosis Neuro: Nonfocal exam. Strength equal bilateral upper and lower extremities, iysl-aa-nfsa normal, ezowrx-gb-frqp normal, cranial nerves II to XII intact. Face is symmetrical. No gross focal deficits noted. Data 02/15/23 20:25 02/15/23 20:25 A&P Assessment and plan (1) Left acute arterial ischemic stroke, MCA (middle cerebral artery): (2) Obesity (BMI 30-39.9): (3) Essential hypertension: Plan #Word finding difficulty #Recent headache that has resolved #Recent MCA stroke status post tPA January 28 #Evolving stroke #Hypertension ? Patient presented with some word finding difficulty symptoms which I cannot seem to identify at this time. His neuro exam is pretty nonfocal. CT head negative, MRI shows no new stroke at this time and shows subacute to chronic MCA stroke. Patient's symptoms did resolve with tPA when last time he was here. CTA head and neck also negative for occlusion. Case was discussed with [facility] by ER doctor who had recommended CTA head and neck and MRI and they are both completed at this time. ? Patient to continue on amlodipine, aspirin Plavix atorvastatin ? Holter monitor to be set up this . He already has a follow-up appointment with neurology upcoming on Saturday. ? Patient also passes nursing dysphagia screen and swallowed really well. ? PT OT in a.m. ? He has no other symptoms at this time. ? Answered all of the family's questions to their satisfaction. Spent greater than 25 minutes at bedside with the family and the patient. ? Consent was obtained to be seen by telehealth. ? I will not order further work-up as he just had work-up done 2 weeks ago. ? Defer to day team for any additional management decisions at this point. ? Observe on medical surgical floor overnight for now. Full code SCDs, heparin SQ twice daily for DVT prophylaxis. Attestations Medical Necessity Statement*: Observation admission for evolving stroke. Coding Level of Care Code G0425 (30 min) TH Encounter Time (min): 45 Patient seen via Telehealth in the acute care setting (hospital or ED location) by agreement and consent of patient or patient promotions representative. Telehealth technology used during the visit includes video and audio. This patient encounter is appropriate and reasonable under the circumstances given the patient?s particular presentation at this time. The patient has been advised of the potential risks and limitations of this mode of treatment (including but not limited to the absence of in-person examination at this time) and has agreed to be treated by an off-site physician for this visit. If deemed clinically neces lydia from this telehealth visit, or if condition or consent for telehealth visit changes, an in-person visit will be arranged. For this encounter, total time for the origination of telehealth care on this date is as shown. Diagnoses Left acute arterial ischemic stroke, MCA (middle cerebral artery) I63.512 Obesity (BMI 30-39.9) E66.9 Essential hypertension I10
[2023-02-16 00:33] VITALS: BP 163/77; PULSE 59; PULSE 66; RESP 17; TEMP 36.4; O2SAT 95
[2023-02-16] MEDS: heparin 5,000 unit/mL INJ 1 mL 5000 UNIT SUBCUT (01:42)
[2023-02-16] MEDS: sodium chloride 0.9% 1,000 ML 75 ML IV (01:42)
[2023-02-16 04:00] VITALS: BP 126/75; PULSE 57; RESP 17; TEMP 36.6; O2SAT 95
[2023-02-16 04:06] LABS: Add Urine Microscopic? NO; Charge for UA Resulting for Rev
[2023-02-16 04:08] LABS: Bilirubin Urine Neg (Negative); Blood Urine Neg (Negative); Glucose Urine UA Norm (Normal); Ketones Urine 1+ (Negative); Nitrate Urine Negative (Negative); Protein Urine Neg (Negative); Urine Appearance Clear (CLEAR); Urine Color Yellow (Yellow); Urobilinogen Urine 1 mg/dL (Negative); pH Urine 7 (5-7)
[2023-02-16 05:46] VITALS: PULSE 51
[2023-02-16 08:00] VITALS: BP 125/70; PULSE 58; RESP 16; TEMP 36.7; O2SAT 96
[2023-02-16] MEDS: aspirin 81 mg EC Tablet PO (08:20)
[2023-02-16] MEDS: amlodipine 10 mg Tablet PO (08:20)
[2023-02-16] MEDS: clopidogrel 75 mg Tablet PO (08:20)
--- NOTE | 2023-02-16 10:26 | P.DS_ITS ---
Discharge Providers Date of Admission: 02/15/23 23:16 Date of Discharge: February 16, 2023 Attending Provider at Admission: Anahi Rosas MD Attending Provider at Discharge: Crescencio Fonseca MD Primary Care Provider: TREVA Grissom Diagnoses at Discharge Discharge Diagnosis (1) Left acute arterial ischemic stroke, MCA (middle cerebral artery): Status: Acute (2) Obesity (BMI 30-39.9): Status: Acute (3) Essential hypertension: Status: Acute Reason for Visit Reason for Visit: Possible [place] Hospital Course Hospital Course 77 year old male with PMH of left MCA stroke 2 weeks ago, diverticulosis, essential hypertension, obesity presented to the hospital for word finding difficulty and headache,CT head without contrast : Evolving infarcts in the left MCA distribution, CTA head and neck: No large vessel stenosis or occlusion.MR head wo con:8.4 cm qjrhxgxt-my-sqmqeiw left MCA stroke. No hyperacute stroke identified. Was kept overnight for observation for possible evolving stroke, in the morning patient denied any significant headache, slurred speech, was not having significant word finding difficulty, denied any weakness in any extremity,he was continued on aspirin Plavix statin amlodipine, vitals were monitored, was on telemetry monitoring overnight, no significant arrhythmia reported, patient is due for follow-up as outpatient, he is also due for event monitor placement next week, patient has been advised to, follow with neurology, and get event monitor placed, for now given no new neurological insult, he was discharged in stable condition to home, he will follow with his PCP as outpatient. Physical Exam Const: COMMON NORMALS: patient oriented x3 HENMT: COMMON NORMALS: normocephalic and atraumatic HEAD & SCALP: normocephalic and atraumatic Resp: COMMON NORMALS: normal respiratory effort, No retractions, No use of accessory muscles and clear to auscultation bilaterally EFFORT & INSPECTION: Yes symmetric chest movement AUSCULTATION: clear to auscultation bilaterally Cardio: COMMON NORMALS: regular rate, regular rhythm, S1 normal heart sound present, S2 normal heart sound present, No gallops present (Cardio), No murmurs present (Cardio), No rub (Cardio) and Peripheral pulses 2+ throughout RATE: regular rate RHYTHM: regular rhythm HEART SOUNDS: S1 normal heart sound present and S2 normal heart sound present PERIPHERAL PULSES: Peripheral pulses 2+ throughout GI: COMMON NORMALS: Normal to inspection, nondistended, normoactive bowel sounds present, Soft to palpation, non-tender, No hepatosplenomegaly present and no masses AUSCULTATION: Yes normoactive bowel sounds PALPATION: Yes Soft to palpation and Yes No hepatosplenomegaly present RECTAL EXAM: Yes deferred Extremity: COMMON NORMALS: no clubbing, cyanosis or edema and no pedal edema Neuro: COMMON NORMALS: patient oriented x3 Discharge Data Studies Completed and Pending Completed Studies During Hospitalization Category Date Time Status CT head wo con* [id number] Stat Cat Scan 02/15/23 20:14 Completed CTA head neck [CT angio headneck* [id number]] Stat Cat Scan 02/15/23 21:56 Completed MR head wo con* [id number] Stat MRI 02/15/23 23:00 Completed Pending at discharge Category Date Time Status Complete Blood Count w/Auto AM LABS Lab 02/17/23 04:00 Ordered Comprehensive Metabolic Panel AM LABS Lab 02/17/23 04:00 Ordered Magnesium AM LABS Lab 02/17/23 04:00 Ordered Urine Culture Stat Lab 02/16/23 01:45 Received Radiology Impressions Head CT 02/15/23 20:14 IMPRESSION: Evolving infarcts in the left MCA distribution. Head/Neck CTA 02/15/23 21:56 IMPRESSION: No large vessel stenosis or occlusion. IMPRESSION: No stenosis or occlusion. REFERENCES: NASCET CRITERIA. The degree of stenosis in the cervical segment of the internal carotid artery is based on NASCET criteria. Normal is no stenosis. Mild is less than 50% stenosis. Moderate is 50-69% stenosis. Severe is 70% to 99% stenosis. Total occlusion is no detectable patent lumen. Head MRI 02/15/23 23:00 IMPRESSION: 1. 8.4 cm gjuoehon-dd-gjkdamc left MCA stroke. No hyperacute stroke identified. 2. Minimal mass effect again seen. 3. Zkam-kt-yebrxqzg age-related change. Overall, the findings are similar to the same-day head CT. Laboratory Results WBC 7.6 10^3/uL (4.0-10.0) 02/15/23 20:25 RBC 4.91 10^6/uL (4.1-5.3) 02/15/23 20:25 Hgb 15.2 g/dL (11.7-16.6) 02/15/23 20:25 Hct 44.6 % (42.0-52.0) 02/15/23 20: MCV 90.8 fl (80-94) 02/15/23 20:25 MCH 31.0 pg (28.0-34.0) 02/15/23 20: MCHC 34.1 g/dL (30.0-36.0) 02/15/23 20: RDW 12.3 % (12.1-15.1) 02/15/23 20: Plt Count 205 10^3/cmm (130-400) 02/15/23 20: MPV 8.9 fL (7.4-10.4) 02/15/23 20:25 Neut % (Auto) 59.3 % 02/15/23 20: Lymph % (Auto) 27.5 % 02/15/23 20: [place] % (Auto) 7.0 % 02/15/23 20:25 Eos % (Auto) 4.7 % 02/15/23 20: Baso % (Auto) 1.4 % 02/15/23 20: Neut # (Auto) 4.49 10^3/uL (1.8-7.7) 02/15/23 20: Lymph # (Auto) 2.1 10^3/uL (0.8-4.8) 02/15/23 20:25 [place] # (Auto) 0.5 10^3/uL (0.2-0.9) 02/15/23 20: Eos # (Auto) 0.4 10^3/uL (0.0-0.8) 02/15/23 20:25 Baso # (Auto) 0.1 10^3/uL (0.0-0.1) 02/15/23 20: Nucleated RBC % (auto) 0 % 02/15/23 20: Nucleated RBCs # 0.0 /100WBC 02/15/23 20:25 ESR 11 mm/hr (0-10) H 02/15/23 20:25 Sodium 135 mmol/L (136-145) L 02/15/23 20:25 Potassium 3.9 mmol/L (3.5-5.1) 02/15/23 20:25 Chloride 100 mmol/L (98-107) 02/15/23 20:25 Carbon Dioxide 24 mmol/L (22-29) 02/15/23 20:25 Anion Gap 14.9 (5-19) 02/15/23 20:25 BUN 17 mg/dL (8-23) 02/15/23 20:25 Creatinine 1.1 mg/dL (0.7-1.2) 02/15/23 20:25 GFR Calculation Not Reportable 02/15/23 20:25 Glucose 92 mg/dL (65-115) 02/15/23 20:25 Calculated Osmolality 281 mOsm/kg (285-295) L 02/15/23 20:25 Calcium 8.9 mg/dL (8.5-10.5) 02/15/23 20:25 Magnesium 2.1 mg/dL (1.7-2.3) 02/15/23 20:25 Total Bilirubin 0.6 mg/dL (0.15-1.2) 02/15/23 20:25 AST 15 U/L (0-40) 02/15/23 20:25 ALT 15 U/L (0-41) 02/15/23 20:25 Alkaline Phosphatase 75 U/L (40-130) 02/15/23 20:25 C-Reactive Protein 5.3 mg/L (0.0-4.9) H 02/15/23 20:25 Total Protein 7.5 g/dL (6.6-8.7) 02/15/23 20:25 Albumin 4.3 g/dL (3.5-5.2) 02/15/23 20:25 Globulin 3.2 g/dL (1.3-4.6) 02/15/23 20:25 Urine Color Yellow (Yellow) 02/16/23 01:45 Urine Appearance Clear (CLEAR) 02/16/23 01:45 Urine pH 7 (5-7) 02/16/23 01:45 Ur Specific [place] 1.000 (1.005-1.030) L 02/16/23 01:45 Urine Protein Neg (Negative) 02/16/23 01:45 Urine Glucose (UA) Norm (Normal) 02/16/23 01:45 Urine Ketones 1+ (Negative) H 02/16/23 01:45 Urine Blood Neg (Negative) 02/16/23 01:45 Urine Nitrate Negative (Negative) 02/16/23 01:45 Urine Bilirubin Neg (Negative) 02/16/23 01:45 Urine Urobilinogen 1 mg/dL (Negative) H 02/16/23 01:45 Ur Leukocyte Esterase Not Reportable 02/16/23 01:45 Vitals Last Vital Signs Temp 98.0 F 02/16/23 08:00 Pulse 58 L 02/16/23 08:00 Resp 16 02/16/23 08:00 BP 125/70 02/16/23 08:00 Pulse Ox 96 02/16/23 08:00 O2 Del Method Room Air 02/16/23 04:00 Discharge Plan Discharge Patient Disposition: Home Condition: Stable Prescriptions: Continued amlodipine 10 mg tablet 10 mg PO DAILY 30 Days Qty: 30 [facility]RF [facility] Inst[facility] clopidogrel 75 mg tablet 75 mg PO DAILY 30 Days Qty: 30 2RF Rx Instructions: [facility] atorvastatin 40 mg tablet 40 mg PO BEDTIME 30 Days Qty: 30 3RF Rx Instructions: [facility] aspirin 81 mg Tablet,Delayed Release (Dr/Ec) 81 mg PO DAILY 30 Days Qty: 30 3RF Discharge Orders: Discharge Order (Routine); Ordered 02/16/23 Ordered By: Crescencio Fonseca Referrals: Tuan Cooney FNP-C [Primary Care Provider] - (Sent message to clinic.) Toñito Brenner MD [Referring] - 02/20/23 10:30 am Patient Instructions: Ischemic Stroke (DC), Chronic Hypertension (DC), Opioid Safety, Stroke Stoplight Discharge Attestations Time Spent in Discharge Care*: less than 30 min Quality Metrics Clinical Quality Measures [ No reported AMI, CVA or VTE this stay] Coding Level of Care Code Acute Code for Chg Fwd Diagnoses Left acute arterial ischemic stroke, MCA (middle cerebral artery) I63.512 Obesity (BMI 30-39.9) E66.9 Essential hypertension I10
[2023-02-16 11:59] VITALS: BP 125/70; PULSE 60; RESP 16; TEMP 36.7; O2SAT 96
--- NOTE | 2023-02-16 11:59 | PC.NURSE ---
IV removed intact. Patient tolerated well. Patient is A&OX3. Respirations even and non-labored on room air. Reviewed patient's discharge with patient and family. Patient verbalized understanding of follow up on February 20 and for his scheduled appointments. Patient wheel chaired to private car.
== END 2023-02-16 11:59 | disposition home or self-care (01) ==
LOC: ER 23:33 → MEDSURG 23:58
PROVIDERS: Admitting Provider Internal Medicine; Emergency Provider Emergency Medicine; PCP Nurse Practitioner; Visit Provider Internal Medicine
DX: I63.512 Cerebral infarction due to unspecified occlusion or stenosis of left middle cerebral artery (principal); R47.01 Aphasia; R29.702 NIHSS score 2; R47.81 Slurred speech
CPT/HCPCS: 36415; 70450; 70496; 70498; 70551; 80053; 81003; 83735; 85025; 85651; 86140; 87086; 93005; 96360; 96372; 97161; 99285; G0378; J1644; J7030; Q9967

== ENCOUNTER 2023-03-06 06:00 | Outpatient (RCR) | payer MEDICARE, OTHER, SELFPAY | END 2023-03-11 23:59 | disposition home or self-care (01) | LOC: TST 06:00 | PROVIDERS: Visit Provider Family Medicine | DX: F80.1 Expressive language disorder (principal) | CPT/HCPCS: 92523 ==

== ENCOUNTER 2023-03-12 06:00 | Outpatient (RCR) | payer MEDICARE, OTHER, SELFPAY | END 2023-04-11 23:59 | disposition home or self-care (01) | LOC: TST 06:00 | PROVIDERS: Visit Provider Family Medicine | DX: F80.1 Expressive language disorder (principal); I69.320 Aphasia following cerebral infarction | CPT/HCPCS: 92507 ==